=== PATIENT | female | born 1950 | race Hispanic/Latino ===

== ENCOUNTER 2021-03-06 16:55 | Inpatient (IN) | payer MEDICARE ==
--- NOTE | 2021-03-06 18:37 | Emergency Department Report ---
ED General Adult HPI - General Chief complaint: Abdominal Pain Stated complaint: SENT BY [facility] Time Seen by Provider: 03/06/21 18:32 Source: patient Mode of arrival: Ambulatory Limitations: No Limitations - History of Present Illness Initial comments: Patient was sent in from a alf for paracentesis. Patient was supposed to have had a paracentesis done 3 weeks ago as an outpatient. Apparently this was never completed. The family was trying to follow-up on it. The patient was ultimately directed here. Dr. Gambino, one of the physicians apparently was referenced by the alf report. According to him, he was going to get an kit and do it as an outpatient at the alf. We are not certain who actually directed the patient to the emergency department. Upon arrival, patient states that she does not feel well. She states that her stomach "aches." She has no sharp or stabbing pain. There is no fevers or chills. She states that the pain has been present for weeks now. She understood that she was coming here to get fluid drained off. She has never had fluid drained off before. She denies having an ultrasound that showed fluid in her abdomen. - Related Data Previous Rx's Medication Instructions Recorded Last Taken Type Folic Acid [Folvite] 1 mg PO QDAY #30 tablet 02/16/21 Unknown Rx Multivitamin Tab [Multiple Vitamin 1 each PO QDAY #30 tablet 02/16/21 Unknown Rx TAB (Theragran)] Thiamine [Vitamin B-1] 100 mg PO QDAY #30 tablet 02/16/21 Unknown Rx dilTIAZem CD [Cardizem CD] 180 mg PO QDAY #30 capsule 02/16/21 Unknown Rx Allergies Allergy/AdvReac Type Severity Reaction Status Date / Time Penicillins Allergy Hives Verified 02/16/21 13:34 ED Review of Systems ROS: Stated complaint: SENT BY [facility] Other details as noted in HPI Comment: All other systems reviewed and negative Constitutional: denies: fever Eyes: denies: eye pain ENT: denies: throat pain Respiratory: denies: cough Cardiovascular: denies: chest pain Endocrine: denies: unexplained weight loss Gastrointestinal: as per HPI Genitourinary: denies: dysuria Musculoskeletal: denies: back pain Skin: denies: rash Neurological: denies: headache Hematological/Lymphatic: denies: easy bruising ED Past Medical Hx - Past Medical History Previous Medical History?: Yes Hx Hypertension: Yes Hx Asthma: Yes Additional medical history: Alcoholic liver disease - Surgical History Past Surgical History?: Yes Hx Coronary Stent: Yes - Family History Family history: no significant - Social History Smoking Status: Smoker, Current Status Unknown - Medications Home Medications: Home Medications Medication Instructions Recorded Confirmed Last Taken Type Folic Acid [Folvite] 1 mg PO QDAY #30 tablet 02/16/21 Unknown Rx Multivitamin Tab [Multiple Vitamin 1 each PO QDAY #30 tablet 02/16/21 Unknown Rx TAB (Theragran)] Thiamine [Vitamin B-1] 100 mg PO QDAY #30 tablet 02/16/21 Unknown Rx dilTIAZem CD [Cardizem CD] 180 mg PO QDAY #30 capsule 02/16/21 Unknown Rx ED Physical Exam - General Limitations: No Limitations, Other (Pulse ox noted and normal) General appearance: alert, in no apparent distress - Head Head exam: Present: atraumatic, normocephalic - Eye Eye exam: Present: normal appearance, EOMI, scleral icterus - ENT ENT exam: Present: normal orophraynx, normal external ear exam - Neck Neck exam: Present: normal inspection. Absent: meningismus - Respiratory Respiratory exam: Present: normal lung sounds bilaterally. Absent: respiratory distress - Cardiovascular Cardiovascular Exam: Present: regular rate, normal rhythm - GI/Abdominal GI/Abdominal exam: Present: soft, tenderness (Mild and diffuse). Absent: distended, guarding, rebound, pulsatile mass - Extremities Exam Extremities exam: Present: normal capillary refill - Back Exam Back exam: Absent: CVA tenderness (R), CVA tenderness (L) - Neurological Exam Neurological exam: Present: alert, oriented X3, CN II-XII intact. Absent: motor sensory deficit - Psychiatric Psychiatric exam: Present: normal affect, normal mood - Skin Skin exam: Present: warm, dry ED Course Vital Signs 03/06/21 16:59 Temperature 98 F Pulse Rate 83 Respiratory 16 Rate Blood Pressure 116/82 [Left] O2 Sat by Pulse 96 Oximetry - Reevaluation(s) Reevaluation #1: 03/06/21 19:01 Case was discussed with Dr. Gambino, the physician that apparently was referenced by the alf. He agrees with observation status as well as planned paracentesis tomorrow. Screening labs for coagulopathy have been ordered. Reevaluation #2: 03/06/21 21:01 Patient was admitted ED Medical Decision Making - Lab Data Result diagrams: 03/06/21 19:09 03/06/21 19:09 - Medical Decision Making Patient presents with reports of abdominal pain and need for paracentesis. Labs have been reviewed. Dr. Gambino is going to be here tomorrow and will complete paracentesis. He had requested that we place the patient in observation status. Hospitalist was notified and the patient was admitted overnight. Critical Care Time: No Critical care attestation.: If time is entered above; I have spent that time in minutes in the direct care of this critically ill patient, excluding procedure time. ED Disposition Clinical Impression: Generalized abdominal pain, Alcoholic liver disease, Ascites Disposition: ADMITTED INPATIENT Is pt being admited?: Yes Condition: Stable Instructions: Abdominal Pain (ED)
[2021-03-06 20:15] LABS: Hematocrit 42.8 % (30.3-42.9); Hemoglobin 14.1 gm/dl (10.1-14.3); Mean Corpuscular HGB Conc 33 % (30-34); Mean Corpuscular Volume 108 fl (79-97); Platelet Count 203 K/mm3 (140-440); Red Blood Count 3.97 M/mm3 (3.65-5.03); Red Cell Distribution Width 15.7 % (13.2-15.2)
[2021-03-06 20:28] LABS: INR 1.48 (0.87-1.13)
[2021-03-06 20:33] LABS: Albumin 2.6 g/dL (3.9-5); Calcium 9.3 mg/dL (8.4-10.2)
[2021-03-06] MEDS ORDERED: ALBUTEROL 2.5 MG/3 ML NEBU IH PRN (21:58)
[2021-03-06] MEDS ORDERED: MORPHINE 2 MG/1 ML INJ IV PRN (21:58)
[2021-03-06] MEDS ORDERED: HYDROmorphone 1 MG/1 ML INJ IV PRN (21:58)
[2021-03-06] MEDS ORDERED: ONDANSETRON 4 MG/2 ML INJ IV PRN (21:58)
[2021-03-06] MEDS ORDERED: ACETAMINOPHEN 325 MG TAB PO PRN (21:58)
--- NOTE | 2021-03-06 22:05 | History and Physical Report ---
History of Present Illness Date of examination: 03/06/21 Date of admission: 03/06/21 Chief complaint: Abdominal pain Ascites History of present illness: 70 years old female with history of alcoholic liver disease was brought to the emergency room because of abdominal pain and ascites and patient needs paracentesis. Patient was supposed to have had a paracentesis done 3 weeks ago as an outpatient. Apparently this was never completed. The family was trying to follow-up on it. The patient was ultimately directed here. Dr. Gambino, one of the physicians apparently was referenced by the [facility] report. According to him, he was going to get an kit and do it as an outpatient at the [facility]. We are not certain who actually directed the patient to the emergency department. Upon arrival, patient states that she does not feel well. She states that her stomach "aches." She has no sharp or stabbing pain. There is no fevers or chills. She states that the pain has been present for weeks now. She understood that she was coming here to get fluid drained off. She has never had fluid drained off before. She denies having an ultrasound that showed fluid in her abdomen. Were going to admit the patient to the hospital. Dr. Immanuel Lainez will do the paracentesis in the morning Past History Past Medical History: hypertension (Asthma), other (Alcoholic liver disease) Past Surgical History: Other (Coronary stent) Medications and Allergies Allergies Allergy/AdvReac Type Severity Reaction Status Date / Time Penicillins Allergy Hives Verified 02/16/21 13:34 Home Medications Medication Instructions Recorded Confirmed Last Taken Type Folic Acid [Folvite] 1 mg PO QDAY #30 tablet 02/16/21 Unknown Rx Multivitamin Tab [Multiple Vitamin 1 each PO QDAY #30 tablet 02/16/21 Unknown Rx TAB (Theragran)] Thiamine [Vitamin B-1] 100 mg PO QDAY #30 tablet 02/16/21 Unknown Rx dilTIAZem CD [Cardizem CD] 180 mg PO QDAY #30 capsule 02/16/21 Unknown Rx Review of Systems All systems: negative Gastrointestinal: abdominal pain, other (Abdominal distention) Exam - Constitutional Vitals: Temp Pulse Resp BP Pulse Ox 98 F 83 16 116/82 96 03/06/21 16:59 03/06/21 16:59 03/06/21 16:59 03/06/21 16:59 03/06/21 16:59 General appearance: Present: no acute distress, well-nourished - EENT Eyes: Present: PERRL ENT: hearing intact, clear oral mucosa - Neck Neck: Present: supple, normal ROM - Respiratory Respiratory effort: normal Respiratory: bilateral: diminished - Cardiovascular Heart Sounds: Present: S1 & S2. Absent: rub, click - Extremities Extremities: pulses symmetrical, No edema Peripheral Pulses: within normal limits - Abdominal General gastrointestinal: Present: soft, non-tender, distended, normal bowel sounds Female genitourinary: Present: normal - Integumentary Integumentary: Present: clear, warm, dry - Musculoskeletal Musculoskeletal: gait normal, strength equal bilaterally - Psychiatric Psychiatric: appropriate mood/affect, intact judgment & insight - Neurologic Neurologic: CNII-XII intact, moves all extremities Results - Labs CBC & Chem 7: 03/06/21 19:09 03/06/21 19:09 Labs: Laboratory Last Values WBC 4.5 K/mm3 (4.5-11.0) 03/06/21 19:09 RBC 3.97 M/mm3 (3.65-5.03) 03/06/21 19:09 Hgb 14.1 gm/dl (10.1-14.3) 03/06/21 19:09 Hct 42.8 % (30.3-42.9) 03/06/21 19:09 MCV 108 fl (79-97) H 03/06/21 19:09 MCH 36 pg (28-32) H 03/06/21 19:09 MCHC 33 % (30-34) 03/06/21 19:09 RDW 15.7 % (13.2-15.2) H 03/06/21 19:09 Plt Count 203 K/mm3 (140-440) 03/06/21 19:09 PT 19.4 Sec. (12.2-14.9) H 03/06/21 19:09 INR 1.48 (0.87-1.13) H 03/06/21 19:09 Sodium 135 mmol/L (137-145) L 03/06/21 19:09 Potassium 3.5 mmol/L (3.6-5.0) L 03/06/21 19:09 Chloride 100.2 mmol/L (98-107) 03/06/21 19:09 Carbon Dioxide 19 mmol/L (22-30) L 03/06/21 19:09 Anion Gap 19 mmol/L 03/06/21 19:09 BUN 20 mg/dL (7-17) H 03/06/21 19:09 Creatinine 1.0 mg/dL (0.6-1.2) 03/06/21 19:09 Estimated GFR 55 ml/min 03/06/21 19:09 BUN/Creatinine Ratio 20 % 03/06/21 19:09 Glucose 100 mg/dL (65-100) 03/06/21 19:09 Calcium 9.3 mg/dL (8.4-10.2) 03/06/21 19:09 Total Bilirubin 2.80 mg/dL (0.1-1.2) H 03/06/21 19:09 AST 63 units/L (5-40) H 03/06/21 19:09 ALT 26 units/L (7-56) 03/06/21 19:09 Alkaline Phosphatase 103 units/L (35-129) 03/06/21 19:09 Total Protein 7.5 g/dL (6.3-8.2) 03/06/21 19:09 Albumin 2.6 g/dL (3.9-5) L 03/06/21 19:09 Albumin/Globulin Ratio 0.5 % 03/06/21 19:09 Lipase 19 units/L (13-60) 03/06/21 19:09 Assessment and Plan VTE prophylaxis?: Mechanical Plan of care discussed with patient/family: Yes - Patient Problems (1) Ascites Current Visit: Yes Status: Acute Plan to address problem: Admit the patient to the medical floor. Cardiac diet n.p.o. after midnight. Oxygen via nasal respirator per minute. Pepcid 20 mg p.o. twice daily. We consulted Dr. Gambino to see the patient for paracentesis. Recheck CBC CMP in the morning (2) Alcoholic liver disease Current Visit: Yes Status: Acute Plan to address problem: Patient counseled regarding quit drinking. Pepcid 20 mg p.o. twice daily. Thiamine 100 mg p.o. daily. Folic acid 1 mg p.o. daily (3) Generalized abdominal pain Current Visit: Yes Status: Acute Plan to address problem: N.p.o. after midnight. Pepcid 20 mg p.o. twice daily. Morphine 2 mg IV every 4 hours as needed. If needed will consult GI in the morning (4) Alcohol dependence Current Visit: No Status: Acute Qualifiers: Complication of substance-induced condition: uncomplicated Plan to address problem: Patient counseled regarding quit drinking. Patient is put on thiamine 100 mg p.o. daily and folic acid 1 mg p.o. daily (5) Hypertension Current Visit: Yes Status: Acute Plan to address problem: Hydralazine 10 mg IV every 6 hours as needed. Cardizem 180 mg p.o. daily (6) Asthma Current Visit: Yes Status: Acute Plan to address problem: Oxygen by nasal cannula 3 topiramate. DuoNeb by nebulizer every 4 hours. Albuterol via nebulizer every 4 hours as needed (7) DVT prophylaxis Current Visit: No Status: Acute Plan to address problem: SCD for DVT prophylaxis. Pepcid 20 mg p.o. twice daily for GI prophylaxis. Patient is a full code
[2021-03-06] MEDS: FAMOTIDINE 20 MG TAB PO SCH (23:30)
[2021-03-07] MEDS: IPRATROPIUM/ALBUTEROL SULFATE 3 ML AMPUL.NEB IH SCH ×4 (02:21→22:13)
[2021-03-07 06:13] LABS: Hematocrit 32.6 % (30.3-42.9); Hemoglobin 10.5 gm/dl (10.1-14.3); Mean Corpuscular HGB Conc 32 % (30-34); Mean Corpuscular Volume 108 fl (79-97); Platelet Count 177 K/mm3 (140-440); Red Blood Count 3.01 M/mm3 (3.65-5.03); Red Cell Distribution Width 15.5 % (13.2-15.2)
[2021-03-07 06:28] LABS: Albumin 1.8 g/dL (3.9-5); Calcium 8.1 mg/dL (8.4-10.2)
[2021-03-07 08:09] LABS: Eosinophils # (Auto) 0.1 K/mm3 (0.0-0.4); Monocytes # (Auto) 0.7 K/mm3 (0.0-0.8)
[2021-03-07 09:47] LABS: Platelet Estimate Consistent w Auto; RBC Morphology Normal; Total Cells Counted 100
[2021-03-07] MEDS: dilTIAZem CD 180 MG CAP PO SCH (10:00)
[2021-03-07] MEDS: FAMOTIDINE 20 MG TAB PO SCH (10:00)
--- NOTE | 2021-03-07 10:12 | Gastroenterology Consultation ---
History of Present Illness - Reason for Consult Consult date: 03/07/21 Abdominal Pain, Anemia Requesting physician: RENITA POWELL - History of Present Illness The patient is a 70 yo female admitted with abdominal pain and likely ascites, from her Rehab facility (was here 3 weeks ago with AF/RVR). 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 She does have hypoalbuminemia, elevated LFTs, and borderline platelets. In addition, she is morbidly obese. She says her abdomen has been swollen for several weeks, and per the notes, she was supposed to have an outpatient paracentesis. She says her last EtOH was "last month" but can not provide a date (awake, alert, and no signs of asterixis, but poor historian). She has no fevers or focal abdominal pain. She denies blood in her stools. Other than MVI and diltiazem, no other meds, and denies prior paracentesis. Past History Past Medical History: CAD (Hx of PCI), COPD, hypertension (Asthma), liver d isease, other (Morbid obesity) Past Surgical History: Other (Coronary stent) Social history: smoking, alcohol abuse Family history: no significant family history Medications and Allergies Allergies Allergy/AdvReac Type Severity Reaction Status Date / Time Penicillins Allergy Hives Verified 02/16/21 13:34 Home Medications Medication Instructions Recorded Confirmed Last Taken Type Folic Acid [Folvite] 1 mg PO QDAY #30 tablet 02/16/21 Unknown Rx Multivitamin Tab [Multiple Vitamin 1 each PO QDAY #30 tablet 02/16/21 Unknown Rx TAB (Theragran)] Thiamine [Vitamin B-1] 100 mg PO QDAY #30 tablet 02/16/21 Unknown Rx dilTIAZem CD [Cardizem CD] 180 mg PO QDAY #30 capsule 02/16/21 Unknown Rx Active Meds: Active Medications Acetaminophen (Acetaminophen 325 Mg Tab) 650 mg PO Q4H PRN PRN Reason: Pain MILD(1-3)/Fever >100.5/SALINAS Albumin Human (Albumin Human 25% (25 Gm/100 Ml) Inj) 25 gm IV Q8HR ARUN Stop: 03/08/21 06:01 Albuterol (Albuterol 2.5 Mg/3 Ml Nebu) 2.5 mg IH Q4HRT PRN PRN Reason: Shortness Of Breath Albuterol/Ipratropium (Ipratropium/Albuterol Sulfate 3 Ml Ampul.Neb) 1 ampul IH Q6HRT [facility] Last Admin: 03/07/21 02:21 Dose: 1 ampul Diltiazem HCl (Diltiazem Cd 180 Mg Cap) 180 mg PO QDAY ARUN Folic Acid (Folic Acid 1 Mg Tab) 1 mg PO QDAY [facility] Morphine Sulfate (Morphine 2 Mg/1 Ml Inj) 1 mg IV Q4H PRN PRN Reason: Pain, Moderate (4-6) Multivitamins (Multivitamins ,Therapeutic Tab) 1 each PO QDAY [facility] Ondansetron HCl (Ondansetron 4 Mg/2 Ml Inj) 4 mg IV Q8H PRN PRN Reason: Nausea And Vomiting Pantoprazole Sodium (Pantoprazole 40 Mg Tab) 40 mg PO QDAC [facility] Sodium Chloride (Sodium Chloride 0.9% 10 Ml Flush Syringe) 10 ml IV BID [facility] Last Admin: 03/07/21 02:22 Dose: 10 ml Sodium Chloride (Sodium Chloride 0.9% 10 Ml Flush Syringe) 10 ml IV PRN PRN PRN Reason: LINE FLUSH Thiamine HCl (Thiamine 100 Mg Tab) 100 mg PO QDAY [facility] Review of Systems - Review of Systems All systems: negative (as noted in the HPI) Exam - Constitutional Vital Signs: Temp Pulse Resp BP Pulse Ox 98 F 82 17 95/62 97 03/06/21 16:59 03/07/21 06:31 03/07/21 06:31 03/07/21 06:31 03/07/21 06:31 General appearance: no acute distress - EENT Eyes: PERRL, EOM intact ENT: hearing intact, clear oral mucosa, poor dentition - Neck Neck: supple, normal ROM - Respiratory Respiratory effort: normal Respiratory: bilateral: CTA - Cardiovascular Rhythm: regular Heart Sounds: Present: S1 & S2 - Gastrointestinal General gastrointestinal: Present: soft, non-tender, distended (Obesity with probable ascites as well) - Integumentary Integumentary: Present: clear, warm, dry - Neurologic Neurological: alert and oriented x3 - Psychiatric Psychiatric: appropriate mood/affect - Labs CBC & Chem 7: 03/07/21 05:23 03/07/21 05:23 Lab Results: Laboratory Results - last 24 hr 03/06/21 03/06/21 03/06/21 19:09 19:09 19:09 WBC 4.5 RBC 3.97 Hgb 14.1 Hct 42.8 MCV 108 H MCH 36 H MCHC 33 RDW 15.7 H Plt Count 203 [place] % (Auto) Eos % (Auto) [place] # (Auto) Eos # (Auto) Baso # (Auto) Add Manual Diff Total Counted Seg Neutrophils % Seg Neuts % (Manual) Band Neutrophils % Lymphocytes % (Manual) Reactive Lymphs % (Man) Monocytes % (Manual) Eosinophils % (Manual) Basophils % (Manual) Metamyelocytes % Myelocytes % Promyelocytes % Blast Cells % Nucleated RBC % Seg Neutrophils # Seg Neutrophils # Man Band Neutrophils # Lymphocytes # (Manual) Abs React Lymphs (Man) Monocytes # (Manual) Eosinophils # (Manual) Basophils # (Manual) Metamyelocytes # Myelocytes # Promyelocytes # Blast Cells # WBC Morphology Hypersegmented Neuts Hyposegmented Neuts Hypogranular Neuts Smudge Cells Toxic Granulation Toxic Vacuolation Dohle Bodies Pelger-Huet Anomaly Luis Rods Platelet Estimate Clumped Platelets Plt Clumps, EDTA Large Platelets Giant Platelets Platelet Satelliting Plt Morphology Comment RBC Morphology Dimorphic RBCs Polychromasia Hypochromasia Poikilocytosis Anisocytosis Microcytosis Macrocytosis Spherocytes Pappenheimer Bodies Sickle Cells Target Cells Tear Drop Cells Ovalocytes Helmet Cells [place] Bodies Simpson Rings [place] Cells Bite Cells Crenated Cell Elliptocytes Acanthocytes (Spur) Rouleaux Hemoglobin C Crystals Schistocytes Malaria parasites Paulo Bodies Hem Pathologist Commnt PT 19.4 H INR 1.48 H Sodium 135 L Potassium 3.5 L Chloride 100.2 Carbon Dioxide 19 L Anion Gap 19 BUN 20 H Creatinine 1.0 Estimated GFR 55 BUN/Creatinine Ratio 20 Glucose 100 Calcium 9.3 Total Bilirubin 2.80 H AST 63 H ALT 26 Alkaline Phosphatase 103 Total Protein 7.5 Albumin 2.6 L Albumin/Globulin Ratio 0.5 Lipase 19 03/07/21 03/07/21 05:23 05:23 WBC 3.9 L RBC 3.01 L Hgb 10.5 D Hct 32.6 D MCV 108 H MCH 35 H MCHC 32 RDW 15.5 H Plt Count 177 [place] % (Auto) Site Medical Director Eos % (Auto) 2.0 [place] # (Auto) 0.7 Eos # (Auto) 0.1 Baso # (Auto) 0.0 Add Manual Diff Complete Total Counted 100 Seg Neutrophils % 46.8 Seg Neuts % (Manual) 65.0 Band Neutrophils % 0 Lymphocytes % (Manual) 17.0 Reactive Lymphs % (Man) 0 Monocytes % (Manual) 16.0 H Eosinophils % (Manual) 1.0 Basophils % (Manual) 1.0 Metamyelocytes % 0 Myelocytes % 0 Promyelocytes % 0 Blast Cells % 0 Nucleated RBC % Not Reportable Seg Neutrophils # 1.8 Seg Neutrophils # Man 2.5 Band Neutrophils # 0.0 Lymphocytes # (Manual) 0.7 L Abs React Lymphs (Man) 0.0 Monocytes # (Manual) 0.6 Eosinophils # (Manual) 0.0 Basophils # (Manual) 0.0 Metamyelocytes # 0.0 Myelocytes # 0.0 Promyelocytes # 0.0 Blast Cells # 0.0 WBC Morphology Not Reportable Hypersegmented Neuts Not Reportable Hyposegmented Neuts Not Reportable Hypogranular Neuts Not Reportable Smudge Cells Not Reportable Toxic Granulation Not Reportable Toxic Vacuolation Not Reportable Dohle Bodies Not Reportable Pelger-Huet Anomaly Not Reportable Luis Rods Not Reportable Platelet Estimate Consistent w auto Clumped Platelets Not Reportable Plt Clumps, EDTA Not Reportable Large Platelets Not Reportable Giant Platelets Not Reportable Platelet Satelliting Not Reportable Plt Morphology Comment Not Reportable RBC Morphology Normal Dimorphic RBCs Not Reportable Polychromasia Not Reportable Hypochromasia Not Reportable Poikilocytosis Not Reportable Anisocytosis Not Reportable Microcytosis Not Reportable Macrocytosis Not Reportable Spherocytes Not Reportable Pappenheimer Bodies Not Reportable Sickle Cells Not Reportable Target Cells Not Reportable Tear Drop Cells Not Reportable Ovalocytes Not Reportable Helmet Cells Not Reportable [place] Bodies Not Reportable Simpson Rings Not Reportable [place] Cells Not Reportable Bite Cells Not Reportable Crenated Cell Not Reportable Elliptocytes Not Reportable Acanthocytes (Spur) Not Reportable Rouleaux Not Reportable Hemoglobin C Crystals Not Reportable Schistocytes Not Reportable Malaria parasites Not Reportable Paulo Bodies Not Reportable Hem Pathologist Commnt No PT INR Sodium 139 Potassium 3.8 Chloride 104.2 Carbon Dioxide 23 Anion Gap 16 BUN 22 H Creatinine 1.0 Estimated GFR 55 BUN/Creatinine Ratio 22 Glucose 84 Calcium 8.1 L Total Bilirubin 1.90 H AST 45 H ALT 17 Alkaline Phosphatase 73 Total Protein 5.2 L D Albumin 1.8 L Albumin/Globulin Ratio 0.5 Lipase Assessment and Plan - Patient Problems (1) Alcoholic liver disease Current Visit: Yes Status: Acute Plan to address problem: - Continue MVI therapy; no need for CIWA since resident of Rehab and over 2 weeks since last EtOH. - Will check routine liver serologies, and abdominal US. - If significant ascites on US, recommend paracentesis with fluid for cell count as well as cytology given age/gender. - Hold diuretics today pending US, but will add albumin given level 1.8, and likely start tomorrow. - Will add protonix; hold beta blockers for now given use of diltiazem already. - Recommend minimize narcotics and no benzos. (2) Ascites Current Visit: Yes Status: Acute (3) Macrocytic anemia Current Visit: Yes Status: Acute Plan to address problem: - Will check B12 level but likely due to EtOH liver disease. - Patient has a hx of rectal bleeding, and no recent endoscopy (here or [place]); eventual endoscopy when clinically improved.
[2021-03-07] MEDS ORDERED: MORPHINE 2 MG/1 ML INJ IV PRN (11:00)
[2021-03-07] MEDS: FOLIC ACID 1 MG TAB PO SCH (11:57)
[2021-03-07] MEDS: MULTIVITAMINS ,THERAPEUTIC TAB PO SCH (11:57)
[2021-03-07] MEDS: THIAMINE 100 MG TAB PO SCH (11:57)
[2021-03-07] MEDS: PANTOPRAZOLE 40 MG TAB PO SCH (11:57)
--- NOTE | 2021-03-07 12:09 | Ultrasound Report ---
ULTRASOUND ABDOMEN, COMPLETE INDICATION / CLINICAL INFORMATION: Assess for possible cirrhosis. COMPARISON: None available. FINDINGS: Study is limited due to body habitus. PANCREAS: Visualized portions of the pancreas are within normal limits. ABDOMINAL AORTA: No significant abnormality. IVC: No significant abnormality. LIVER: Liver is normal in size, measuring 14.1 cm. There is diffusely increased hepatic echogenicity. No focal lesion. PORTAL VEIN: Normal hepatopedal blood flow in the main portal vein. GALLBLADDER: The gallbladder is not seen and may be surgically absent. BILE DUCTS: Common bile duct is not visualized. KIDNEYS: Right: No significant abnormality. Left: Left kidney is not visualized. SPLEEN: Not visualized FREE FLUID: Moderate volume ascites. ADDITIONAL FINDINGS: None. IMPRESSION: 1. Limited study, as above. Diffusely increased hepatic echogenicity is nonspecific but may reflect chronic hepatic dysfunction or fatty infiltration. 2. Moderate volume ascites. Signer Name: Junior Cannon MD Signed: 03/07/2021 12:04 PM Workstation Name: [id number]
--- NOTE | 2021-03-07 12:27 | Progress Note ---
Assessment and Plan Assessment and plan: #Moderate abdominal ascites #Generalized abdominal pain Patient endorses history of significant alcohol dependence that has since ceased. Increase likelihood of decompensated alcoholic cirrhosis. Pending abdominal ultrasound to assess for cirrhosis and ascites. Gastroenterology consulted; appreciate recs Pending paracentesis with fluid studies. Starting albumin resuscitation in the setting of albumin being 1.8. Continue multivitamin, thiamine, and folic acid daily. Discontinuing any beta-blockers in the setting of patient already receiving diltiazem. Continue to monitor #History of alcohol dependence CIWA protocol discontinued as patient endorses last alcoholic beverage >2 weeks ago #Hypertension - home medications: Diltiazem 180 mg daily - current medications: Diltiazem 180 mg daily - SBP goal <160 and DBP goal <90 while inpatient - continue to monitor #Asthma Continue albuterol nebs every 4 hours as needed #Macrocytic anemia Likely in the setting of prolonged alcohol consumption. Continue to monitor #Advanced care planning -Disease education conducted, care plan discussed, diagnoses discussed, prognosis discussed, and patient acknowledges understanding with care plan -Time: +30 min Disposition Plan: Continue medical management Total Time Spent with Patient (Minutes): 45 minutes History Interval history: No acute events over night. The patient denies fevers, chills, nausea, vomiting, abdominal pain, chest pain/pressure, shortness of breath, urinary symptoms, weakness, or confusion. Hospitalist Physical - Constitutional Vitals: Temp Pulse Resp BP Pulse Ox 98 F 82 17 95/62 97 03/06/21 16:59 03/07/21 06:31 03/07/21 06:31 03/07/21 06:31 03/07/21 06:31 General appearance: Present: no acute distress, well-nourished - EENT Eyes: Present: PERRL, EOM intact ENT: hearing intact, clear oral mucosa - Neck Neck: Present: supple, normal ROM - Respiratory Respiratory effort: normal Respiratory: bilateral: CTA - Cardiovascular Rhythm: regular Heart Sounds: Present: S1 & S2 - Extremities Extremities: no ischemia, pulses intact, pulses symmetrical, No edema, normal temperature, normal color Peripheral Pulses: within normal limits - Abdominal General gastrointestinal: soft, non-tender, non-distended, distended (Abdominal ascites) - Integumentary Integumentary: Present: clear, warm, dry - Psychiatric Psychiatric: appropriate mood/affect, intact judgment & insight, cooperative - Neurologic Neurologic: CNII-XII intact, moves all extremities - Allied Health Allied health notes reviewed: nursing Results - Labs CBC & Chem 7: 03/07/21 05:23 03/07/21 05:23 Labs: Laboratory Last Values WBC 3.9 K/mm3 (4.5-11.0) L 03/07/21 05:23 RBC 3.01 M/mm3 (3.65-5.03) L 03/07/21 05:23 Hgb 10.5 gm/dl (10.1-14.3) D 03/07/21 05:23 Hct 32.6 % (30.3-42.9) D 03/07/21 05:23 MCV 108 fl (79-97) H 03/07/21 05:23 MCH 35 pg (28-32) H 03/07/21 05:23 MCHC 32 % (30-34) 03/07/21 05:23 RDW 15.5 % (13.2-15.2) H 03/07/21 05:23 Plt Count 177 K/mm3 (140-440) 03/07/21 05:23 [place] % (Auto) [employer] 03/07/21 05:23 Eos % (Auto) 2.0 % (0.0-4.3) 03/07/21 05:23 [place] # (Auto) 0.7 K/mm3 (0.0-0.8) 03/07/21 05:23 Eos # (Auto) 0.1 K/mm3 (0.0-0.4) 03/07/21 05:23 Baso # (Auto) 0.0 K/mm3 (0.0-0.1) 03/07/21 05:23 Add Manual Diff Complete 03/07/21 05:23 Total Counted 100 03/07/21 05:23 Seg Neutrophils % 46.8 % (40.0-70.0) 03/07/21 05:23 Seg Neuts % (Manual) 65.0 % (40.0-70.0) 03/07/21 05:23 Band Neutrophils % 0 % 03/07/21 05:23 Lymphocytes % (Manual) 17.0 % (13.4-35.0) 03/07/21 05:23 Reactive Lymphs % (Man) 0 % 03/07/21 05:23 Monocytes % (Manual) 16.0 % (0.0-7.3) H 03/07/21 05:23 Eosinophils % (Manual) 1.0 % (0.0-4.3) 03/07/21 05:23 Basophils % (Manual) 1.0 % (0.0-1.8) 03/07/21 05:23 Metamyelocytes % 0 % 03/07/21 05:23 Myelocytes % 0 % 03/07/21 05:23 Promyelocytes % 0 % 03/07/21 05:23 Blast Cells % 0 % 03/07/21 05:23 Nucleated RBC % Not Reportable 03/07/21 05:23 Seg Neutrophils # 1.8 K/mm3 (1.8-7.7) 03/07/21 05:23 Seg Neutrophils # Man 2.5 K/mm3 (1.8-7.7) 03/07/21 05:23 Band Neutrophils # 0.0 K/mm3 03/07/21 05:23 Lymphocytes # (Manual) 0.7 K/mm3 (1.2-5.4) L 03/07/21 05:23 Abs React Lymphs (Man) 0.0 K/mm3 03/07/21 05:23 Monocytes # (Manual) 0.6 K/mm3 (0.0-0.8) 03/07/21 05:23 Eosinophils # (Manual) 0.0 K/mm3 (0.0-0.4) 03/07/21 05:23 Basophils # (Manual) 0.0 K/mm3 (0.0-0.1) 03/07/21 05:23 Metamyelocytes # 0.0 K/mm3 03/07/21 05:23 Myelocytes # 0.0 K/mm3 03/07/21 05:23 Promyelocytes # 0.0 K/mm3 03/07/21 05:23 Blast Cells # 0.0 K/mm3 03/07/21 05:23 WBC Morphology Not Reportable 03/07/21 05:23 Hypersegmented Neuts Not Reportable 03/07/21 05:23 Hyposegmented Neuts Not Reportable 03/07/21 05:23 Hypogranular Neuts Not Reportable 03/07/21 05:23 Smudge Cells Not Reportable 03/07/21 05:23 Toxic Granulation Not Reportable 03/07/21 05:23 Toxic Vacuolation Not Reportable 03/07/21 05:23 Dohle Bodies Not Reportable 03/07/21 05:23 Pelger-Huet Anomaly Not Reportable 03/07/21 05:23 Luis Rods Not Reportable 03/07/21 05:23 Platelet Estimate Consistent w auto 03/07/21 05:23 Clumped Platelets Not Reportable 03/07/21 05:23 Plt Clumps, EDTA Not Reportable 03/07/21 05:23 Large Platelets Not Reportable 03/07/21 05:23 Giant Platelets Not Reportable 03/07/21 05:23 Platelet Satelliting Not Reportable 03/07/21 05:23 Plt Morphology Comment Not Reportable 03/07/21 05:23 RBC Morphology Normal 03/07/21 05:23 Dimorphic RBCs Not Reportable 03/07/21 05:23 Polychromasia Not Reportable 03/07/21 05:23 Hypochromasia Not Reportable 03/07/21 05:23 Poikilocytosis Not Reportable 03/07/21 05:23 Anisocytosis Not Reportable 03/07/21 05:23 Microcytosis Not Reportable 03/07/21 05:23 Macrocytosis Not Reportable 03/07/21 05:23 Spherocytes Not Reportable 03/07/21 05:23 Pappenheimer Bodies Not Reportable 03/07/21 05:23 Sickle Cells Not Reportable 03/07/21 05:23 Target Cells Not Reportable 03/07/21 05:23 Tear Drop Cells Not Reportable 03/07/21 05:23 Ovalocytes Not Reportable 03/07/21 05:23 Helmet Cells Not Reportable 03/07/21 05:23 Ras[place] Bodies Not Reportable 03/07/21 05:23 [place] Rings Not Reportable 03/07/21 05:23 [place] Cells Not Reportable 03/07/21 05:23 Bite Cells Not Reportable 03/07/21 05:23 Crenated Cell Not Reportable 03/07/21 05:23 Elliptocytes Not Reportable 03/07/21 05:23 Acanthocytes (Spur) Not Reportable 03/07/21 05:23 Rouleaux Not Reportable 03/07/21 05:23 Hemoglobin C Crystals Not Reportable 03/07/21 05:23 Schistocytes Not Reportable 03/07/21 05:23 Malaria parasites Not Reportable 03/07/21 05:23 Paulo Bodies Not Reportable 03/07/21 05:23 Hem Pathologist Commnt No 03/07/21 05:23 PT 19.4 Sec. (12.2-14.9) H 03/06/21 19:09 INR 1.48 (0.87-1.13) H 03/06/21 19:09 Sodium 139 mmol/L (137-145) 03/07/21 05:23 Potassium 3.8 mmol/L (3.6-5.0) 03/07/21 05:23 Chloride 104.2 mmol/L (98-107) 03/07/21 05:23 Carbon Dioxide 23 mmol/L (22-30) 03/07/21 05:23 Anion Gap 16 mmol/L 03/07/21 05:23 BUN 22 mg/dL (7-17) H 03/07/21 05:23 Creatinine 1.0 mg/dL (0.6-1.2) 03/07/21 05:23 Estimated GFR 55 ml/min 03/07/21 05:23 BUN/Creatinine Ratio 22 % 03/07/21 05:23 Glucose 84 mg/dL (65-100) 03/07/21 05:23 Calcium 8.1 mg/dL (8.4-10.2) L 03/07/21 05:23 Total Bilirubin 1.90 mg/dL (0.1-1.2) H 03/07/21 05:23 AST 45 units/L (5-40) H 03/07/21 05:23 ALT 17 units/L (7-56) 03/07/21 05:23 Alkaline Phosphatase 73 units/L (35-129) 03/07/21 05:23 Total Protein 5.2 g/dL (6.3-8.2) L D 03/07/21 05:23 Albumin 1.8 g/dL (3.9-5) L 03/07/21 05:23 Albumin/Globulin Ratio 0.5 % 03/07/21 05:23 Lipase 19 units/L (13-60) 03/06/21 19:09 Active Medications - Current Medications Current Medications: Generic Name Dose Route Start Last Admin Trade Name Freq PRN Reason Stop Dose Admin Acetaminophen 650 mg 03/06/21 21:58 Acetaminophen 325 Mg Tab PO Q4H PRN Pain MILD(1-3)/Fever >100.5/SALINAS Albumin Human 25 gm 03/07/21 14:00 Albumin Human 25% (25 Gm/100 Ml) Inj IV 03/08/21 06:01 Q8HR ARUN Albuterol 2.5 mg 03/06/21 21:58 03/07/21 11:57 Albuterol 2.5 Mg/3 Ml Nebu IH 2.5 mg Q4HRT PRN Administration Shortness Of Breath Albuterol/Ipratropium 1 ampul 03/07/21 02:00 03/07/21 11:56 Ipratropium/Albuterol Sulfate 3 Ml Ampul.Neb IH 1 ampul Q6HRT ARUN Administration Diltiazem HCl 180 mg 03/07/21 10:00 Diltiazem Cd 180 Mg Cap PO QDAY ARUN Folic Acid 1 mg 03/07/21 10:00 03/07/21 11:57 Folic Acid 1 Mg Tab PO 1 mg QDAY ARUN Administration Morphine Sulfate 1 mg 03/07/21 11:00 Morphine 2 Mg/1 Ml Inj IV Q4H PRN Pain, Moderate (4-6) Multivitamins 1 each 03/07/21 10:00 03/07/21 11:57 Multivitamins ,Therapeutic Tab PO 1 each QDAY ARUN Administration Ondansetron HCl 4 mg 03/06/21 21:58 Ondansetron 4 Mg/2 Ml Inj IV Q8H PRN Nausea And Vomiting Pantoprazole Sodium 40 mg 03/07/21 11:00 03/07/21 11:57 Pantoprazole 40 Mg Tab PO 40 mg QDAC ARUN Administration Sodium Chloride 10 ml 03/06/21 22:00 03/07/21 11:57 Sodium Chloride 0.9% 10 Ml Flush Syringe IV 10 ml BID ARUN Administration Sodium Chloride 10 ml 03/06/21 21:58 Sodium Chloride 0.9% 10 Ml Flush Syringe IV PRN PRN LINE FLUSH Thiamine HCl 100 mg 03/07/21 10:00 03/07/21 11:57 Thiamine 100 Mg Tab PO 100 mg QDAY ARUN Administration
[2021-03-07] MEDS: ALBUMIN HUMAN 25% (25 GM/100 ML) INJ IV SCH ×2 (14:00→22:09)
[2021-03-08] MEDS: IPRATROPIUM/ALBUTEROL SULFATE 3 ML AMPUL.NEB IH SCH ×4 (02:26→20:37)
[2021-03-08 04:38] LABS: Basophils % (Auto) 0.8 % (0.0-1.8); Eosinophils # (Auto) 0.1 K/mm3 (0.0-0.4); Eosinophils % (Auto) 2.2 % (0.0-4.3); Hematocrit 33.9 % (30.3-42.9); Hemoglobin 11.1 gm/dl (10.1-14.3); Lymphocytes # (Auto) 1.4 K/mm3 (1.2-5.4); Lymphocytes % (Auto) 31.2 % (13.4-35.0); Mean Corpuscular HGB Conc 33 % (30-34); Mean Corpuscular Volume 109 fl (79-97); Monocytes # (Auto) 0.5 K/mm3 (0.0-0.8); Monocytes % (Auto) 11.8 % (0.0-7.3); Platelet Count 142 K/mm3 (140-440)
[2021-03-08 04:58] LABS: Albumin 2.4 g/dL (3.9-5); Calcium 8.7 mg/dL (8.4-10.2)
[2021-03-08] MEDS: ALBUMIN HUMAN 25% (25 GM/100 ML) INJ IV SCH (06:47)
[2021-03-08] MEDS: PANTOPRAZOLE 40 MG TAB PO SCH (08:47)
--- NOTE | 2021-03-08 10:41 | Progress Note ---
Assessment and Plan Assessment and plan: #Moderate abdominal ascites #Generalized abdominal pain Patient endorses history of significant alcohol dependence that has since ceased. Increase likelihood of decompensated alcoholic cirrhosis. Pending abdominal ultrasound to assess for cirrhosis and ascites. Gastroenterology consulted; appreciate recs Ordered ultrasound guided paracentesis for diagnostic and therapeutic relief. Ordered ascitic labs following paracentesis. Starting albumin resuscitation in the setting of albumin being 1.8. Continue multivitamin, thiamine, and folic acid daily. Discontinuing any beta-blockers in the setting of patient already receiving diltiazem. Continue to monitor #COVID-19 infection Holding on starting steroids and remdesivir as the patient is currently on room air. Continue to monitor. Continue contact and droplet precautions. #History of alcohol dependence CIWA protocol discontinued as patient endorses last alcoholic beverage >2 weeks ago #Hypertension - home medications: Diltiazem 180 mg daily - current medications: Diltiazem 180 mg daily - SBP goal <160 and DBP goal <90 while inpatient - continue to monitor #Asthma Continue albuterol nebs every 4 hours as needed #Macrocytic anemia Likely in the setting of prolonged alcohol consumption. Continue to monitor #Advanced care planning -Disease education conducted, care plan discussed, diagnoses discussed, prognosis discussed, and patient acknowledges understanding with care plan -Time: +30 min Disposition Plan: Continue medical management Total Time Spent with Patient (Minutes): 45 minutes History Interval history: No acute events overnight. Hospitalist Physical - Constitutional Vitals: Temp Pulse Resp BP Pulse Ox 98 F 80 17 91/57 99 03/06/21 16:59 03/08/21 01:28 03/08/21 01:28 03/08/21 01:15 03/08/21 01:28 General appearance: Present: no acute distress, well-nourished - EENT Eyes: Present: PERRL, EOM intact ENT: hearing intact, clear oral mucosa - Neck Neck: Present: supple, normal ROM - Respiratory Respiratory effort: normal Respiratory: bilateral: diminished - Cardiovascular Rhythm: regular Heart Sounds: Present: S1 & S2 - Extremities Extremities: no ischemia, pulses intact, pulses symmetrical, No edema, normal temperature, normal color Peripheral Pulses: within normal limits - Abdominal General gastrointestinal: soft, non-tender, distended (Moderate ascites), normal bowel sounds - Integumentary Integumentary: Present: clear, warm, dry - Psychiatric Psychiatric: appropriate mood/affect, memory intact, cooperative - Neurologic Neurologic: CNII-XII intact, moves all extremities - Allied Health Allied health notes reviewed: nursing Results - Labs CBC & Chem 7: 03/08/21 04:09 03/08/21 04:09 Labs: Laboratory Last Values WBC 4.5 K/mm3 (4.5-11.0) 03/08/21 04:09 RBC 3.10 M/mm3 (3.65-5.03) L 03/08/21 04:09 Hgb 11.1 gm/dl (10.1-14.3) 03/08/21 04:09 Hct 33.9 % (30.3-42.9) 03/08/21 04:09 MCV 109 fl (79-97) H 03/08/21 04:09 MCH 36 pg (28-32) H 03/08/21 04:09 MCHC 33 % (30-34) 03/08/21 04:09 RDW 16.0 % (13.2-15.2) H 03/08/21 04:09 Plt Count 142 K/mm3 (140-440) 03/08/21 04:09 Lymph % (Auto) 31.2 % (13.4-35.0) 03/08/21 04:09 [place] % (Auto) 11.8 % (0.0-7.3) H 03/08/21 04:09 Eos % (Auto) 2.2 % (0.0-4.3) 03/08/21 04:09 Baso % (Auto) 0.8 % (0.0-1.8) 03/08/21 04:09 Lymph # (Auto) 1.4 K/mm3 (1.2-5.4) 03/08/21 04:09 [place] # (Auto) 0.5 K/mm3 (0.0-0.8) 03/08/21 04:09 Eos # (Auto) 0.1 K/mm3 (0.0-0.4) 03/08/21 04:09 Baso # (Auto) 0.0 K/mm3 (0.0-0.1) 03/08/21 04:09 Add Manual Diff Complete 03/07/21 05:23 Total Counted 100 03/07/21 05:23 Seg Neutrophils % 54.0 % (40.0-70.0) 03/08/21 04:09 Seg Neuts % (Manual) 65.0 % (40.0-70.0) 03/07/21 05:23 Band Neutrophils % 0 % 03/07/21 05:23 Lymphocytes % (Manual) 17.0 % (13.4-35.0) 03/07/21 05:23 Reactive Lymphs % (Man) 0 % 03/07/21 05:23 Monocytes % (Manual) 16.0 % (0.0-7.3) H 03/07/21 05:23 Eosinophils % (Manual) 1.0 % (0.0-4.3) 03/07/21 05:23 Basophils % (Manual) 1.0 % (0.0-1.8) 03/07/21 05:23 Metamyelocytes % 0 % 03/07/21 05:23 Myelocytes % 0 % 03/07/21 05:23 Promyelocytes % 0 % 03/07/21 05:23 Blast Cells % 0 % 03/07/21 05:23 Nucleated RBC % Not Reportable 03/07/21 05:23 Seg Neutrophils # 2.5 K/mm3 (1.8-7.7) 03/08/21 04:09 Seg Neutrophils # Man 2.5 K/mm3 (1.8-7.7) 03/07/21 05:23 Band Neutrophils # 0.0 K/mm3 03/07/21 05:23 Lymphocytes # (Manual) 0.7 K/mm3 (1.2-5.4) L 03/07/21 05:23 Abs React Lymphs (Man) 0.0 K/mm3 03/07/21 05:23 Monocytes # (Manual) 0.6 K/mm3 (0.0-0.8) 03/07/21 05:23 Eosinophils # (Manual) 0.0 K/mm3 (0.0-0.4) 03/07/21 05:23 Basophils # (Manual) 0.0 K/mm3 (0.0-0.1) 03/07/21 05:23 Metamyelocytes # 0.0 K/mm3 03/07/21 05:23 Myelocytes # 0.0 K/mm3 03/07/21 05:23 Promyelocytes # 0.0 K/mm3 03/07/21 05:23 Blast Cells # 0.0 K/mm3 03/07/21 05:23 WBC Morphology Not Reportable 03/07/21 05:23 Hypersegmented Neuts Not Reportable 03/07/21 05:23 Hyposegmented Neuts Not Reportable 03/07/21 05:23 Hypogranular Neuts Not Reportable 03/07/21 05:23 Smudge Cells Not Reportable 03/07/21 05:23 Toxic Granulation Not Reportable 03/07/21 05:23 Toxic Vacuolation Not Reportable 03/07/21 05:23 Dohle Bodies Not Reportable 03/07/21 05:23 Pelger-Huet Anomaly Not Reportable 03/07/21 05:23 Luis Rods Not Reportable 03/07/21 05:23 Platelet Estimate Consistent w auto 03/07/21 05:23 Clumped Platelets Not Reportable 03/07/21 05:23 Plt Clumps, EDTA Not Reportable 03/07/21 05:23 Large Platelets Not Reportable 03/07/21 05:23 Giant Platelets Not Reportable 03/07/21 05:23 Platelet Satelliting Not Reportable 03/07/21 05:23 Plt Morphology Comment Not Reportable 03/07/21 05:23 RBC Morphology Normal 03/07/21 05:23 Dimorphic RBCs Not Reportable 03/07/21 05:23 Polychromasia Not Reportable 03/07/21 05:23 Hypochromasia Not Reportable 03/07/21 05:23 Poikilocytosis Not Reportable 03/07/21 05:23 Anisocytosis Not Reportable 03/07/21 05:23 Microcytosis Not Reportable 03/07/21 05:23 Macrocytosis Not Reportable 03/07/21 05:23 Spherocytes Not Reportable 03/07/21 05:23 Pappenheimer Bodies Not Reportable 03/07/21 05:23 Sickle Cells Not Reportable 03/07/21 05:23 Target Cells Not Reportable 03/07/21 05:23 Tear Drop Cells Not Reportable 03/07/21 05:23 Ovalocytes Not Reportable 03/07/21 05:23 Helmet Cells Not Reportable 03/07/21 05:23 [place] Bodies Not Reportable 03/07/21 05:23 [place] Rings Not Reportable 03/07/21 05:23 [place] Cells Not Reportable 03/07/21 05:23 Bite Cells Not Reportable 03/07/21 05:23 Crenated Cell Not Reportable 03/07/21 05:23 Elliptocytes Not Reportable 03/07/21 05:23 Acanthocytes (Spur) Not Reportable 03/07/21 05:23 Rouleaux Not Reportable 03/07/21 05:23 Hemoglobin C Crystals Not Reportable 03/07/21 05:23 Schistocytes Not Reportable 03/07/21 05:23 Malaria parasites Not Reportable 03/07/21 05:23 Paulo Bodies Not Reportable 03/07/21 05:23 Hem Pathologist Commnt No 03/07/21 05:23 PT 19.4 Sec. (12.2-14.9) H 03/06/21 19:09 INR 1.48 (0.87-1.13) H 03/06/21 19:09 Sodium 138 mmol/L (137-145) 03/08/21 04:09 Potassium 3.6 mmol/L (3.6-5.0) 03/08/21 04:09 Chloride 104.6 mmol/L (98-107) 03/08/21 04:09 Carbon Dioxide 24 mmol/L (22-30) 03/08/21 04:09 Anion Gap 13 mmol/L 03/08/21 04:09 BUN 20 mg/dL (7-17) H 03/08/21 04:09 Creatinine 1.0 mg/dL (0.6-1.2) 03/08/21 04:09 Estimated GFR 55 ml/min 03/08/21 04:09 BUN/Creatinine Ratio 20 % 03/08/21 04:09 Glucose 110 mg/dL (65-100) H 03/08/21 04:09 Calcium 8.7 mg/dL (8.4-10.2) 03/08/21 04:09 Iron 51 ug/dL (37-170) 03/08/21 04:09 TIBC 71 mcg/dL (250-450) L 03/08/21 04:09 Ferritin 1461.0 ng/mL (10.0-200.0) H 03/08/21 04:09 Total Bilirubin 2.00 mg/dL (0.1-1.2) H 03/08/21 04:09 AST 43 units/L (5-40) H 03/08/21 04:09 ALT 18 units/L (7-56) 03/08/21 04:09 Alkaline Phosphatase 75 units/L (35-129) 03/08/21 04:09 Total Protein 5.5 g/dL (6.3-8.2) L 03/08/21 04:09 Albumin 2.4 g/dL (3.9-5) L 03/08/21 04:09 Albumin/Globulin Ratio 0.8 % 03/08/21 04:09 Lipase 19 units/L (13-60) 03/06/21 19:09 Vitamin B12 > 2000 pg/mL (211-911) H 03/08/21 04:09 Coronavirus (PCR) Positive (Negative) A 03/07/21 09:33 Hep Bs Antigen Non-reactive (Negative) 03/08/21 04:09 Hepatitis C Antibody Non-reactive (NonReactive) 03/08/21 04:09 Active Medications - Current Medications Current Medications: Generic Name Dose Route Start Last Admin Trade Name Freq PRN Reason Stop Dose Admin Acetaminophen 650 mg 03/06/21 21:58 Acetaminophen 325 Mg Tab PO Q4H PRN Pain MILD(1-3)/Fever >100.5/SALINAS Albuterol 2.5 mg 03/06/21 21:58 03/07/21 11:57 Albuterol 2.5 Mg/3 Ml Nebu IH 2.5 mg Q4HRT PRN Administration Shortness Of Breath Albuterol/Ipratropium 1 ampul 03/07/21 02:00 03/08/21 08:47 Ipratropium/Albuterol Sulfate 3 Ml Ampul.Neb IH 1 ampul Q6HRT ARUN Administration Diltiazem HCl 180 mg 03/07/21 10:00 03/07/21 10:00 Diltiazem Cd 180 Mg Cap PO 180 mg QDAY ARUN Administration Folic Acid 1 mg 03/07/21 10:00 03/07/21 11:57 Folic Acid 1 Mg Tab PO 1 mg QDAY ARUN Administration Morphine Sulfate 1 mg 03/07/21 11:00 Morphine 2 Mg/1 Ml Inj IV Q4H PRN Pain, Moderate (4-6) Multivitamins 1 each 03/07/21 10:00 03/07/21 11:57 Multivitamins ,Therapeutic Tab PO 1 each QDAY ARUN Administration Ondansetron HCl 4 mg 03/06/21 21:58 Ondansetron 4 Mg/2 Ml Inj IV Q8H PRN Nausea And Vomiting Pantoprazole Sodium 40 mg 03/07/21 11:00 03/08/21 08:47 Pantoprazole 40 Mg Tab PO 40 mg QDAC ARUN Administration Sodium Chloride 10 ml 03/06/21 22:00 03/07/21 22:12 Sodium Chloride 0.9% 10 Ml Flush Syringe IV 10 ml BID ARUN Administration Sodium Chloride 10 ml 03/06/21 21:58 Sodium Chloride 0.9% 10 Ml Flush Syringe IV PRN PRN LINE FLUSH Thiamine HCl 100 mg 03/07/21 10:00 03/07/21 11:57 Thiamine 100 Mg Tab PO 100 mg QDAY ARUN Administration
[2021-03-08] MEDS: MULTIVITAMINS ,THERAPEUTIC TAB PO SCH (10:50)
[2021-03-08] MEDS: FOLIC ACID 1 MG TAB PO SCH (10:50)
[2021-03-08] MEDS: dilTIAZem CD 180 MG CAP PO SCH (10:50)
[2021-03-08] MEDS: THIAMINE 100 MG TAB PO SCH (10:51)
--- NOTE | 2021-03-08 13:37 | Gastroenterology Progress Note ---
Assessment and Plan - Patient Problems (1) Alcoholic liver disease Current Visit: Yes Status: Acute Plan to address problem: - Continue MVI therapy; no need for CIWA since resident of Rehab and over 2 weeks since last EtOH. - Liver serologies negative (high ferritin from EtOH probably, but will need HFE eventually) and US no mass. - Paracentesis with fluid for cell count as well as cytology given age/gender. - Start diuretics today and add albumin given level 1.8. - Will continue protonix; hold beta blockers for now given use of diltiazem already. - Recommend stop narcotics and no benzos. (2) Ascites Current Visit: Yes Status: Acute (3) Macrocytic anemia Current Visit: Yes Status: Acute Plan to address problem: - B12 level WNL and likely due to EtOH liver disease. - Patient has a hx of rectal bleeding, and no recent endoscopy (here or [place]); eventual endoscopy when clinically improved. Subjective Date of service: 03/08/21 Principal diagnosis: Liver Disease Interval history: The patient feels better without fevers, N/V, or severe abdominal pain. She has not had paracentesis yet, but is tolerating other meds. Objective - Constitutional Vitals: Temp Pulse Resp BP Pulse Ox 98.1 F 75 18 111/64 98 03/08/21 12:35 03/08/21 12:35 03/08/21 12:35 03/08/21 12:35 03/08/21 12:35 General appearance: no acute distress, obese - EENT ENT: hearing intact, clear oral mucosa - Respiratory Respiratory effort: normal Respiratory: bilateral: CTA - Cardiovascular Rhythm: regular Heart Sounds: Present: S1 & S2 - Gastrointestinal General gastrointestinal: Present: soft, non-tender, distended (Mild/moderate ascites) - Labs CBC & Chem 7: 03/08/21 04:09 03/08/21 04:09 Labs: Laboratory Results - last 24 hr 03/07/21 03/08/21 03/08/21 09:33 04:09 04:09 WBC RBC Hgb Hct MCV MCH MCHC RDW Plt Count Lymph % (Auto) [place] % (Auto) Eos % (Auto) Baso % (Auto) Lymph # (Auto) [place] # (Auto) Eos # (Auto) Baso # (Auto) Seg Neutrophils % Seg Neutrophils # Sodium 138 Potassium 3.6 Chloride 104.6 Carbon Dioxide 24 Anion Gap 13 BUN 20 H Creatinine 1.0 Estimated GFR 55 BUN/Creatinine Ratio 20 Glucose 110 H Calcium 8.7 Iron 51 TIBC 71 L Ferritin Total Bilirubin 2.00 H AST 43 H ALT 18 Alkaline Phosphatase 75 Total Protein 5.5 L Albumin 2.4 L Albumin/Globulin Ratio 0.8 Vitamin B12 Coronavirus (PCR) Positive A Hep Bs Antigen Hepatitis C Antibody Non-reactive 03/08/21 03/08/21 03/08/21 04:09 04:09 04:09 WBC 4.5 RBC 3.10 L Hgb 11.1 Hct 33.9 MCV 109 H MCH 36 H MCHC 33 RDW 16.0 H Plt Count 142 Lymph % (Auto) 31.2 [place] % (Auto) 11.8 H Eos % (Auto) 2.2 Baso % (Auto) 0.8 Lymph # (Auto) 1.4 [place] # (Auto) 0.5 Eos # (Auto) 0.1 Baso # (Auto) 0.0 Seg Neutrophils % 54.0 Seg Neutrophils # 2.5 Sodium Potassium Chloride Carbon Dioxide Anion Gap BUN Creatinine Estimated GFR BUN/Creatinine Ratio Glucose Calcium Iron TIBC Ferritin 1461.0 H Total Bilirubin AST ALT Alkaline Phosphatase Total Protein Albumin Albumin/Globulin Ratio Vitamin B12 Coronavirus (PCR) Hep Bs Antigen Non-reactive Hepatitis C Antibody 03/08/21 04:09 WBC RBC Hgb Hct MCV MCH MCHC RDW Plt Count Lymph % (Auto) [place] % (Auto) Eos % (Auto) Baso % (Auto) Lymph # (Auto) [place] # (Auto) Eos # (Auto) Baso # (Auto) Seg Neutrophils % Seg Neutrophils # Sodium Potassium Chloride Carbon Dioxide Anion Gap BUN Creatinine Estimated GFR BUN/Creatinine Ratio Glucose Calcium Iron TIBC Ferritin Total Bilirubin AST ALT Alkaline Phosphatase Total Protein Albumin Albumin/Globulin Ratio Vitamin B12 > 2000 H Coronavirus (PCR) Hep Bs Antigen Hepatitis C Antibody
[2021-03-08] MEDS: FUROSEMIDE 20 MG TAB PO SCH (14:15)
[2021-03-08] MEDS: SPIRONOLACTONE 50 MG TAB PO SCH (15:11)
[2021-03-09] MEDS: IPRATROPIUM/ALBUTEROL SULFATE 3 ML AMPUL.NEB IH SCH (05:44)
[2021-03-09] MEDS ORDERED: ALBUTEROL 8.5 GM MDI INHALATION IH PRN (07:57)
--- NOTE | 2021-03-09 07:57 | Progress Note ---
Assessment and Plan Assessment and plan: #Moderate abdominal ascites #Generalized abdominal pain Patient endorses history of significant alcohol dependence that has since ceased. Increase likelihood of decompensated alcoholic cirrhosis. Abdominal ultrasound revealing "Diffusely increased hepatic echogenicity that may reflect chronic hepatic dysfunction or fatty infiltration; moderate volume ascites" Gastroenterology consulted; appreciate recs Ordered ultrasound guided paracentesis for diagnostic and therapeutic relief. Ordered ascitic labs following paracentesis. Starting albumin resuscitation in the setting of albumin being 1.8. Continue multivitamin, thiamine, and folic acid daily. Consider starting lactulose for possible hepatic encephalopathy? Discontinuing any beta-blockers in the setting of patient already receiving diltiazem. Continue to monitor #COVID-19 infection Holding on starting steroids and remdesivir as the patient is currently on room air. Continue to monitor. Continue contact and droplet precautions. #History of alcohol dependence CIWA protocol discontinued as patient endorses last alcoholic beverage >2 weeks ago #Hypertension - home medications: Diltiazem 180 mg daily - current medications: Diltiazem 180 mg daily - SBP goal <160 and DBP goal <90 while inpatient - continue to monitor #Asthma Continue albuterol nebs every 4 hours as needed #Macrocytic anemia Likely in the setting of prolonged alcohol consumption. Continue to monitor #Advanced care planning -Disease education conducted, care plan discussed, diagnoses discussed, prognosis discussed, and patient acknowledges understanding with care plan -Time: +30 min #Social Detailed conversation with patient's daughter about her overall prognosis. Daughter ([phone]) provided additional insight in regards to the patient's mobility and return to previous years. According to the daughter, the patient lacks motivation to be mobile or take care of herself (ADLs). The patient has been found multiple times sitting in her own excrement and waist due to a lack of desire to get up from the bed. The patient has an alcohol history of appro ximately 35-40 years. The reason the patient is not currently consuming alcohol is due to her recent admissions to hospitals and/for rehab/nursing homes. The daughter endorses not being willing to take care of the patient any further (has been taking care of the patient for approximately 20 years). The daughter also does not believe that patient's granddaughter will be a viable option, as she h as 3 young children all under the age of 4. The daughter is willing to place the patient in a longterm upon discharge. Case management will be made aware for dispo purposes. Disposition Plan: Continue medical management Total Time Spent with Patient (Minutes): 45 minutes History Interval history: No acute events overnight. Hospitalist Physical - Constitutional Vitals: Temp Pulse Resp BP Pulse Ox 98.2 F 82 18 140/66 98 03/08/21 22:57 03/08/21 22:57 03/08/21 22:57 03/08/21 22:57 03/08/21 23:46 General appearance: Present: no acute distress, well-nourished - EENT Eyes: Present: PERRL, EOM intact ENT: hearing intact, clear oral mucosa - Neck Neck: Present: supple, normal ROM - Respiratory Respiratory effort: normal Respiratory: bilateral: diminished - Cardiovascular Rhythm: regular Heart Sounds: Present: S1 & S2 - Extremities Extremities: no ischemia, pulses intact, pulses symmetrical, No edema, normal te mperature, normal color Peripheral Pulses: within normal limits - Abdominal General gastrointestinal: soft, tender, distended (Moderately distended with ascites), normal bowel sounds Localized gastrointestinal: tender: diffuse - Integumentary Integumentary: Present: clear, warm, dry - Psychiatric Psychiatric: appropriate mood/affect - Neurologic Neurologic: CNII-XII intact, moves all extremities - Allied Health Allied health notes reviewed: nursing Results - Labs CBC & Chem 7: 03/08/21 04:09 03/08/21 04:09 Labs: Laboratory Last Values WBC 4.5 K/mm3 (4.5-11.0) 03/08/21 04:09 RBC 3.10 M/mm3 (3.65-5.03) L 03/08/21 04:09 Hgb 11.1 gm/dl (10.1-14.3) 03/08/21 04:09 Hct 33.9 % (30.3-42.9) 03/08/21 04:09 MCV 109 fl (79-97) H 03/08/21 04:09 MCH 36 pg (28-32) H 03/08/21 04:09 MCHC 33 % (30-34) 03/08/21 04:09 RDW 16.0 % (13.2-15.2) H 03/08/21 04:09 Plt Count 142 K/mm3 (140-440) 03/08/21 04:09 Lymph % (Auto) 31.2 % (13.4-35.0) 03/08/21 04:09 Divide % (Auto) 11.8 % (0.0-7.3) H 03/08/21 04:09 Eos % (Auto) 2.2 % (0.0-4.3) 03/08/21 04:09 Baso % (Auto) 0.8 % (0.0-1.8) 03/08/21 04:09 Lymph # (Auto) 1.4 K/mm3 (1.2-5.4) 03/08/21 04:09 Divide # (Auto) 0.5 K/mm3 (0.0-0.8) 03/08/21 04:09 Eos # (Auto) 0.1 K/mm3 (0.0-0.4) 03/08/21 04:09 Baso # (Auto) 0.0 K/mm3 (0.0-0.1) 03/08/21 04:09 Add Manual Diff Complete 03/07/21 05:23 Total Counted 100 03/07/21 05:23 Seg Neutrophils % 54.0 % (40.0-70.0) 03/08/21 04:09 Seg Neuts % (Manual) 65.0 % (40.0-70.0) 03/07/21 05:23 Band Neutrophils % 0 % 03/07/21 05:23 Lymphocytes % (Manual) 17.0 % (13.4-35.0) 03/07/21 05:23 Reactive Lymphs % (Man) 0 % 03/07/21 05:23 Monocytes % (Manual) 16.0 % (0.0-7.3) H 03/07/21 05:23 Eosinophils % (Manual) 1.0 % (0.0-4.3) 03/07/21 05:23 Basophils % (Manual) 1.0 % (0.0-1.8) 03/07/21 05:23 Metamyelocytes % 0 % 03/07/21 05:23 Myelocytes % 0 % 03/07/21 05:23 Promyelocytes % 0 % 03/07/21 05:23 Blast Cells % 0 % 03/07/21 05:23 Nucleated RBC % Not Reportable 03/07/21 05:23 Seg Neutrophils # 2.5 K/mm3 (1.8-7.7) 03/08/21 04:09 Seg Neutrophils # Man 2.5 K/mm3 (1.8-7.7) 03/07/21 05:23 Band Neutrophils # 0.0 K/mm3 03/07/21 05:23 Lymphocytes # (Manual) 0.7 K/mm3 (1.2-5.4) L 03/07/21 05:23 Abs React Lymphs (Man) 0.0 K/mm3 03/07/21 05:23 Monocytes # (Manual) 0.6 K/mm3 (0.0-0.8) 03/07/21 05:23 Eosinophils # (Manual) 0.0 K/mm3 (0.0-0.4) 03/07/21 05:23 Basophils # (Manual) 0.0 K/mm3 (0.0-0.1) 03/07/21 05:23 Metamyelocytes # 0.0 K/mm3 03/07/21 05:23 Myelocytes # 0.0 K/mm3 03/07/21 05:23 Promyelocytes # 0.0 K/mm3 03/07/21 05:23 Blast Cells # 0.0 K/mm3 03/07/21 05:23 WBC Morphology Not Reportable 03/07/21 05:23 Hypersegmented Neuts Not Reportable 03/07/21 05:23 Hyposegmented Neuts Not Reportable 03/07/21 05:23 Hypogranular Neuts Not Reportable 03/07/21 05:23 Smudge Cells Not Reportable 03/07/21 05:23 Toxic Granulation Not Reportable 03/07/21 05:23 Toxic Vacuolation Not Reportable 03/07/21 05:23 Dohle Bodies Not Reportable 03/07/21 05:23 Pelger-Huet Anomaly Not Reportable 03/07/21 05:23 Luis Rods Not Reportable 03/07/21 05:23 Platelet Estimate Consistent w auto 03/07/21 05:23 Clumped Platelets Not Reportable 03/07/21 05:23 Plt Clumps, EDTA Not Reportable 03/07/21 05:23 Large Platelets Not Reportable 03/07/21 05:23 Giant Platelets Not Reportable 03/07/21 05:23 Platelet Satelliting Not Reportable 03/07/21 05:23 Plt Morphology Comment Not Reportable 03/07/21 05:23 RBC Morphology Normal 03/07/21 05:23 Dimorphic RBCs Not Reportable 03/07/21 05:23 Polychromasia Not Reportable 03/07/21 05:23 Hypochromasia Not Reportable 03/07/21 05:23 Poikilocytosis Not Reportable 03/07/21 05:23 Anisocytosis Not Reportable 03/07/21 05:23 Microcytosis Not Reportable 03/07/21 05:23 Macrocytosis Not Reportable 03/07/21 05:23 Spherocytes Not Reportable 03/07/21 05:23 Pappenheimer Bodies Not Reportable 03/07/21 05:23 Sickle Cells Not Reportable 03/07/21 05:23 Target Cells Not Reportable 03/07/21 05:23 Tear Drop Cells Not Reportable 03/07/21 05:23 Ovalocytes Not Reportable 03/07/21 05:23 Helmet Cells Not Reportable 03/07/21 05:23 [place] Bodies Not Reportable 03/07/21 05:23 [place] Rings Not Reportable 03/07/21 05:23 Betty Cells Not Reportable 03/07/21 05:23 Bite Cells Not Reportable 03/07/21 05:23 Crenated Cell Not Reportable 03/07/21 05:23 Elliptocytes Not Reportable 03/07/21 05:23 Acanthocytes (Spur) Not Reportable 03/07/21 05:23 Rouleaux Not Reportable 03/07/21 05:23 Hemoglobin C Crystals Not Reportable 03/07/21 05:23 Schistocytes Not Reportable 03/07/21 05:23 Malaria parasites Not Reportable 03/07/21 05:23 Paulo Bodies Not Reportable 03/07/21 05:23 Hem Pathologist Commnt No 03/07/21 05:23 PT 19.4 Sec. (12.2-14.9) H 03/06/21 19:09 INR 1.48 (0.87-1.13) H 03/06/21 19:09 Sodium 138 mmol/L (137-145) 03/08/21 04:09 Potassium 3.6 mmol/L (3.6-5.0) 03/08/21 04:09 Chloride 104.6 mmol/L (98-107) 03/08/21 04:09 Carbon Dioxide 24 mmol/L (22-30) 03/08/21 04:09 Anion Gap 13 mmol/L 03/08/21 04:09 BUN 20 mg/dL (7-17) H 03/08/21 04:09 Creatinine 1.0 mg/dL (0.6-1.2) 03/08/21 04:09 Estimated GFR 55 ml/min 03/08/21 04:09 BUN/Creatinine Ratio 20 % 03/08/21 04:09 Glucose 110 mg/dL (65-100) H 03/08/21 04:09 Calcium 8.7 mg/dL (8.4-10.2) 03/08/21 04:09 Iron 51 ug/dL (37-170) 03/08/21 04:09 TIBC 71 mcg/dL (250-450) L 03/08/21 04:09 Ferritin 1461.0 ng/mL (10.0-200.0) H 03/08/21 04:09 Total Bilirubin 2.00 mg/dL (0.1-1.2) H 03/08/21 04:09 AST 43 units/L (5-40) H 03/08/21 04:09 ALT 18 units/L (7-56) 03/08/21 04:09 Alkaline Phosphatase 75 units/L (35-129) 03/08/21 04:09 Total Protein 5.5 g/dL (6.3-8.2) L 03/08/21 04:09 Albumin 2.4 g/dL (3.9-5) L 03/08/21 04:09 Albumin/Globulin Ratio 0.8 % 03/08/21 04:09 Lipase 19 units/L (13-60) 03/06/21 19:09 Vitamin B12 > 2000 pg/mL (211-911) H 03/08/21 04:09 Coronavirus (PCR) Positive (Negative) A 03/07/21 09:33 Hep Bs Antigen Non-reactive (Negative) 03/08/21 04:09 Hepatitis C Antibody Non-reactive (NonReactive) 03/08/21 04:09 [place]/IV: Voiding Method External Female Catheter Active Medications - Current Medications Current Medications: Generic Name Dose Route Start Last Admin Trade Name Freq PRN Reason Stop Dose Admin Acetaminophen 650 mg 03/06/21 21:58 Acetaminophen 325 Mg Tab PO Q4H PRN Pain MILD(1-3)/Fever >100.5/SALINAS Albuterol 2.5 mg 03/06/21 21:58 03/07/21 11:57 Albuterol 2.5 Mg/3 Ml Nebu IH 2.5 mg Q4HRT PRN Administration Shortness Of Breath Albuterol/Ipratropium 1 ampul 03/07/21 02:00 03/09/21 05:44 Ipratropium/Albuterol Sulfate 3 Ml Ampul.Neb IH Not Given Q6HRT ARUN Diltiazem HCl 180 mg 03/07/21 10:00 03/08/21 10:50 Diltiazem Cd 180 Mg Cap PO 180 mg QDAY ARUN Administration Furosemide 20 mg 03/08/21 14:00 03/08/21 14:15 Furosemide 20 Mg Tab PO 20 mg QDAY ARUN Administration Multivitamins 1 each 03/07/21 10:00 03/08/21 10:50 Multivitamins ,Therapeutic Tab PO 1 each QDAY ARUN Administration Ondansetron HCl 4 mg 03/06/21 21:58 Ondansetron 4 Mg/2 Ml Inj IV Q8H PRN Nausea And Vomiting Pantoprazole Sodium 40 mg 03/07/21 11:00 03/08/21 08:47 Pantoprazole 40 Mg Tab PO 40 mg QDAC ARUN Administration Sodium Chloride 10 ml 03/06/21 22:00 03/08/21 22:47 Sodium Chloride 0.9% 10 Ml Flush Syringe IV 10 ml BID ARUN Administration Sodium Chloride 10 ml 03/06/21 21:58 Sodium Chloride 0.9% 10 Ml Flush Syringe IV PRN PRN LINE FLUSH Spironolactone 50 mg 03/08/21 14:00 03/08/21 15:11 Spironolactone 50 Mg Tab PO Not Given QDAY ARUN
[2021-03-09] MEDS: SPIRONOLACTONE 50 MG TAB PO SCH (09:04)
[2021-03-09] MEDS: PANTOPRAZOLE 40 MG TAB PO SCH (09:04)
[2021-03-09] MEDS: FUROSEMIDE 20 MG TAB PO SCH (09:04)
[2021-03-09] MEDS: MULTIVITAMINS ,THERAPEUTIC TAB PO SCH (09:05)
[2021-03-09 09:38] LABS: Basophils % (Auto) 0.4 % (0.0-1.8); Eosinophils # (Auto) 0.1 K/mm3 (0.0-0.4); Eosinophils % (Auto) 2.1 % (0.0-4.3); Hematocrit 34.3 % (30.3-42.9); Hemoglobin 11.2 gm/dl (10.1-14.3); Lymphocytes # (Auto) 1.3 K/mm3 (1.2-5.4); Lymphocytes % (Auto) 30.4 % (13.4-35.0); Mean Corpuscular HGB Conc 33 % (30-34); Mean Corpuscular Volume 108 fl (79-97); Monocytes # (Auto) 0.5 K/mm3 (0.0-0.8); Platelet Count 115 K/mm3 (140-440); Red Blood Count 3.18 M/mm3 (3.65-5.03)
[2021-03-09 09:47] LABS: INR 1.74 (0.87-1.13)
[2021-03-09] MEDS: dilTIAZem CD 180 MG CAP PO SCH (10:18)
[2021-03-09 11:07] LABS: Alanine Aminotransferase 16 units/L (7-56); Albumin 2.1 g/dL (3.9-5); BUN/Creatinine Ratio 19; Blood Urea Nitrogen 15 mg/dL (7-17); Calcium 8.6 mg/dL (8.4-10.2); Hemolysis Index 51
--- NOTE | 2021-03-09 14:11 | Procedure Note ---
Date of procedure: 03/09/21 Pre-op diagnosis: ascites Post-op diagnosis: same Procedure: US paracentesis Findings: moderate ascites Anesthesia: local Surgeon: CODIE PEREZ Estimated blood loss: none Pathology: list (120cc) Specimen disposition: to lab Condition: stable Disposition: floor
--- NOTE | 2021-03-09 14:16 | Ultrasound Report ---
ULTRASOUND-GUIDED PARACENTESIS HISTORY: Assess abdominal ascites. PROCEDURE: The risks (including but not limited to bleeding, infection, and bowel injury) and benefi ts were explained to the patient and informed consent was obtained. A time out procedure was perform ed. Ultrasound was used to evaluate the abdomen and locate the largest ascites fluid pocket. Once the sk in was marked, the procedure site was prepped and draped in the usual sterile fashion and lidocaine w as used for local anesthesia. A 5 Yoruba centesis catheter was placed. The patient was monitored cl osely throughout the procedure, and a total of 4700 mL of yellow fluid was aspirated. Samples were s ent to the lab for further evaluation per the primary clinicians orders. The patient tolerated the procedure well with no complications. IMPRESSION: Successful ultrasound-guided paracentesis as described. Signer Name: Anjel Enriquez Jr, MD Signed: 03/09/2021 2:11 PM Workstation Name: [id number]
[2021-03-09 14:47] LABS: Total Cells Counted 100 /mm3
--- NOTE | 2021-03-09 19:29 | Gastroenterology Progress Note ---
Assessment and Plan - Patient Problems (1) Alcoholic liver disease Current Visit: Yes Status: Acute Plan to address problem: - Continue MVI therapy; no need for CIWA since resident of Rehab and over 2 weeks since last EtOH. - Liver serologies negative (high ferritin from EtOH probably, but will need HFE eventually) and US no mass. - Paracentesis cell count not consistent with SBP. - Start diuretics yesterday; continue as outpatient. - Will continue protonix; hold beta blockers for now given use of diltiazem already. - Recommend no narcotics and no benzos. - If AM labs OK, then OK to transition back to Rehab per our service. (2) Ascites Current Visit: Yes Status: Acute (3) Macrocytic anemia Current Visit: Yes Status: Acute Plan to address problem: - B12 level WNL and likely due to EtOH liver disease. - Patient has a hx of rectal bleeding, and no recent endoscopy (here or [facility]); eventual endoscopy when clinically improved. Subjective Date of service: 03/09/21 Principal diagnosis: Liver Disease Interval history: The patient underwent paracentesis without event. No fevers, and no severe abdominal pain. Denies blood in stool. Objective - Constitutional Vitals: Temp Pulse Resp BP Pulse Ox 99.3 F 80 20 111/65 97 03/09/21 17:06 03/09/21 17:06 03/09/21 17:06 03/09/21 17:06 03/09/21 17:06 General appearance: no acute distress - EENT Eyes: PERRL, EOM intact - Respiratory Respiratory effort: normal Respiratory: bilateral: CTA - Cardiovascular Rhythm: regular Heart Sounds: Present: S1 & S2 - Gastrointestinal General gastrointestinal: Present: soft, non-tender, distended (Moderate ascites) - Labs CBC & Chem 7: 03/09/21 08:40 03/09/21 08:40 Labs: Laboratory Results - last 24 hr 03/09/21 03/09/21 03/09/21 08:40 08:40 08:40 WBC 4.2 L RBC 3.18 L Hgb 11.2 Hct 34.3 MCV 108 H MCH 35 H MCHC 33 RDW 16.0 H Plt Count 115 L Lymph % (Auto) 30.4 Ocean % (Auto) 13.0 H Eos % (Auto) 2.1 Baso % (Auto) 0.4 Lymph # (Auto) 1.3 [place] # (Auto) 0.5 Eos # (Auto) 0.1 Baso # (Auto) 0.0 Seg Neutrophils % 54.1 Seg Neutrophils # 2.3 PT 22.0 H INR 1.74 H Sodium 141 Potassium 3.2 L Chloride 107.1 H Carbon Dioxide 20 L Anion Gap 17 BUN 15 Creatinine 0.8 Estimated GFR > 60 BUN/Creatinine Ratio 19 Glucose 75 Calcium 8.6 Total Bilirubin 2.00 H AST 49 H ALT 16 Alkaline Phosphatase 64 Total Protein 5.5 L Albumin 2.1 L Albumin/Globulin Ratio 0.6 Fluid Type Fluid Color Fluid Appearance Fluid WBC Fluid RBC Fluid Seg Neutrophils Fluid Lymphocytes Fluid Reactive Lymphs Fluid Monocytes Fluid Eosinophils Fluid Basophils 03/09/21 13:50 WBC RBC Hgb Hct MCV MCH MCHC RDW Plt Count Lymph % (Auto) Ocean % (Auto) Eos % (Auto) Baso % (Auto) Lymph # (Auto) [place] # (Auto) Eos # (Auto) Baso # (Auto) Seg Neutrophils % Seg Neutrophils # PT INR Sodium Potassium Chloride Carbon Dioxide Anion Gap BUN Creatinine Estimated GFR BUN/Creatinine Ratio Glucose Calcium Total Bilirubin AST ALT Alkaline Phosphatase Total Protein Albumin Albumin/Globulin Ratio Fluid Type Ascitic Fluid Color Yellow Fluid Appearance Hazy Fluid WBC 323 Fluid RBC 133 Fluid Seg Neutrophils 12.0 Fluid Lymphocytes 64.0 Fluid Reactive Lymphs 0 Fluid Monocytes 23.0 Fluid Eosinophils 1.0 Fluid Basophils 0
[2021-03-10 07:51] LABS: Hematocrit 35.6 % (30.3-42.9); Hemoglobin 11.6 gm/dl (10.1-14.3); Mean Corpuscular HGB Conc 33 % (30-34); Mean Corpuscular Volume 107 fl (79-97); Red Blood Count 3.33 M/mm3 (3.65-5.03); Red Cell Distribution Width 15.9 % (13.2-15.2)
[2021-03-10 07:59] LABS: Platelet Count 97 K/mm3 (140-440)
[2021-03-10 08:11] LABS: Alanine Aminotransferase 14 units/L (7-56); Albumin 2.1 g/dL (3.9-5); BUN/Creatinine Ratio 16; Blood Urea Nitrogen 13 mg/dL (7-17); Calcium 8.3 mg/dL (8.4-10.2); Hemolysis Index 3
--- NOTE | 2021-03-10 10:46 | Gastroenterology Progress Note ---
Assessment and Plan - Patient Problems (1) Alcoholic liver disease Current Visit: Yes Status: Acute Plan to address problem: - Continue MVI therapy; no need for CIWA since resident of Rehab and over 2 weeks since last EtOH. - Liver serologies negative (high ferritin from EtOH probably, but will need HFE eventually) and US no mass. - Paracentesis cell count not consistent with SBP. - Started diuretics Tuesday; continue as outpatient. - Will continue protonix; hold beta blockers for now given use of diltiazem already. - Recommend no narcotics and no benzos. - If AM labs OK, then OK to transition back to Rehab per our service. - Will sign off; please call if needed. (2) Ascites Current Visit: Yes Status: Acute (3) Macrocytic anemia Current Visit: Yes Status: Acute Plan to address problem: - B12 level WNL and likely due to EtOH liver disease. - Patient has a hx of rectal bleeding, and no recent endoscopy (here or [place]); eventual endoscopy when clinically improved. Subjective Date of service: 03/10/21 Principal diagnosis: Liver Disease Interval history: The patient tolerated her paracentesis yesterday without event. She has no N/V/abdominal pain. She is urinating "a lot" since starting her diuretics. Appetite is good, and tolerating PO diet. Objective - Constitutional Vitals: Temp Pulse Resp BP Pulse Ox 98.4 F 80 18 92/48 92 03/10/21 05:16 03/10/21 05:16 03/10/21 05:16 03/10/21 05:16 03/10/21 10:16 General appearance: no acute distress - Respiratory Respiratory effort: normal Respiratory: bilateral: CTA - Cardiovascular Rhythm: regular Heart Sounds: Present: S1 & S2 - Extremities Extremities: no ischemia, No edema - Gastrointestinal General gastrointestinal: Present: soft, non-tender, distended (Mild ascites) - Labs CBC & Chem 7: 03/10/21 06:17 03/10/21 06:17 Labs: Laboratory Results - last 24 hr 03/09/21 03/09/21 03/10/21 08:40 13:50 06:17 WBC 4.0 L RBC 3.33 L Hgb 11.6 Hct 35.6 MCV 107 H MCH 35 H MCHC 33 RDW 15.9 H Plt Count 97 L Sodium 141 Potassium 3.2 L Chloride 107.1 H Carbon Dioxide 20 L Anion Gap 17 BUN 15 Creatinine 0.8 Estimated GFR > 60 BUN/Creatinine Ratio 19 Glucose 75 Calcium 8.6 Total Bilirubin 2.00 H AST 49 H ALT 16 Alkaline Phosphatase 64 Total Protein 5.5 L Albumin 2.1 L Albumin/Globulin Ratio 0.6 Fluid Type Ascitic Fluid Color Yellow Fluid Appearance Hazy Fluid WBC 323 Fluid RBC 133 Fluid Seg Neutrophils 12.0 Fluid Lymphocytes 64.0 Fluid Reactive Lymphs 0 Fluid Monocytes 23.0 Fluid Eosinophils 1.0 Fluid Basophils 0 03/10/21 06:17 WBC RBC Hgb Hct MCV MCH MCHC RDW Plt Count Sodium 139 Potassium 2.7 L* Chloride 101.4 Carbon Dioxide 27 D Anion Gap 13 BUN 13 Creatinine 0.8 Estimated GFR > 60 BUN/Creatinine Ratio 16 Glucose 80 Calcium 8.3 L Total Bilirubin 2.30 H AST 39 ALT 14 Alkaline Phosphatase 62 Total Protein 5.2 L Albumin 2.1 L Albumin/Globulin Ratio 0.7 Fluid Type Fluid Color Fluid Appearance Fluid WBC Fluid RBC Fluid Seg Neutrophils Fluid Lymphocytes Fluid Reactive Lymphs Fluid Monocytes Fluid Eosinophils Fluid Basophils
[2021-03-10] MEDS ORDERED: ACETAMINOPHEN 325 MG TAB PO PRN (10:47)
[2021-03-10] MEDS: FUROSEMIDE 20 MG TAB PO SCH (11:02)
[2021-03-10] MEDS: SPIRONOLACTONE 50 MG TAB PO SCH (11:03)
[2021-03-10] MEDS: POTASSIUM CHLORIDE ER 20 MEQ TAB PO SCH ×2 (11:03→17:00)
[2021-03-10] MEDS: PANTOPRAZOLE 40 MG TAB PO SCH (11:03)
[2021-03-10] MEDS: MULTIVITAMINS ,THERAPEUTIC TAB PO SCH (11:03)
[2021-03-10] MEDS: dilTIAZem CD 180 MG CAP PO SCH (11:04)
--- NOTE | 2021-03-10 16:25 | Progress Note ---
Assessment and Plan Assessment and plan: #Moderate abdominal ascites #Generalized abdominal pain #COVID-19 infection #History of alcohol dependence #Hypertension #Hypokalemia #Asthma #Thrombocytopenia #Discharge planning -Patient to return home with family with home health, pending physical therapy evaluation Hospitalist Physical - Physical exam Narrative exam: GENERAL: Well-developed well-nourished. Sitting on the side of the bed in no acute distress. HEENT: Normocephalic. Atraumatic. NECK: Supple. CHEST/LUNGS: CTAB on room air HEART/CARDIOVASCULAR: RRR. No murmur, rubs or gallops appreciated. ABDOMEN: +BS. NT/ND. SKIN: No rashes noted. NEURO: No focal motor deficit. Follows all commands and is ambulatory. MUSCULOSKELETAL: No joint effusion EXTREMITIES: No cyanosis, cubbing or edema. PSYCH: Cooperative. - Constitutional Vitals: Temp Pulse Resp BP Pulse Ox 98.4 F 97 H 18 119/69 96 03/10/21 13:17 03/10/21 13:17 03/10/21 13:17 03/10/21 13:17 03/10/21 13:17 General appearance: Present: no acute distress, well-nourished Results - Labs CBC & Chem 7: 03/10/21 06:17 03/10/21 15:35 Labs: Laboratory Last Values WBC 4.0 K/mm3 (4.5-11.0) L 03/10/21 06:17 RBC 3.33 M/mm3 (3.65-5.03) L 03/10/21 06:17 Hgb 11.6 gm/dl (10.1-14.3) 03/10/21 06:17 Hct 35.6 % (30.3-42.9) 03/10/21 06:17 MCV 107 fl (79-97) H 03/10/21 06:17 MCH 35 pg (28-32) H 03/10/21 06:17 MCHC 33 % (30-34) 03/10/21 06:17 RDW 15.9 % (13.2-15.2) H 03/10/21 06:17 Plt Count 97 K/mm3 (140-440) L 03/10/21 06:17 Lymph % (Auto) 30.4 % (13.4-35.0) 03/09/21 08:40 [place] % (Auto) 13.0 % (0.0-7.3) H 03/09/21 08:40 Eos % (Auto) 2.1 % (0.0-4.3) 03/09/21 08:40 Baso % (Auto) 0.4 % (0.0-1.8) 03/09/21 08:40 Lymph # (Auto) 1.3 K/mm3 (1.2-5.4) 03/09/21 08:40 [place] # (Auto) 0.5 K/mm3 (0.0-0.8) 03/09/21 08:40 Eos # (Auto) 0.1 K/mm3 (0.0-0.4) 03/09/21 08:40 Baso # (Auto) 0.0 K/mm3 (0.0-0.1) 03/09/21 08:40 Add Manual Diff Complete 03/07/21 05:23 Total Counted 100 03/07/21 05:23 Seg Neutrophils % 54.1 % (40.0-70.0) 03/09/21 08:40 Seg Neuts % (Manual) 65.0 % (40.0-70.0) 03/07/21 05:23 Band Neutrophils % 0 % 03/07/21 05:23 Lymphocytes % (Manual) 17.0 % (13.4-35.0) 03/07/21 05:23 Reactive Lymphs % (Man) 0 % 03/07/21 05:23 Monocytes % (Manual) 16.0 % (0.0-7.3) H 03/07/21 05:23 Eosinophils % (Manual) 1.0 % (0.0-4.3) 03/07/21 05:23 Basophils % (Manual) 1.0 % (0.0-1.8) 03/07/21 05:23 Metamyelocytes % 0 % 03/07/21 05:23 Myelocytes % 0 % 03/07/21 05:23 Promyelocytes % 0 % 03/07/21 05:23 Blast Cells % 0 % 03/07/21 05:23 Nucleated RBC % Not Reportable 03/07/21 05:23 Seg Neutrophils # 2.3 K/mm3 (1.8-7.7) 03/09/21 08:40 Seg Neutrophils # Man 2.5 K/mm3 (1.8-7.7) 03/07/21 05:23 Band Neutrophils # 0.0 K/mm3 03/07/21 05:23 Lymphocytes # (Manual) 0.7 K/mm3 (1.2-5.4) L 03/07/21 05:23 Abs React Lymphs (Man) 0.0 K/mm3 03/07/21 05:23 Monocytes # (Manual) 0.6 K/mm3 (0.0-0.8) 03/07/21 05:23 Eosinophils # (Manual) 0.0 K/mm3 (0.0-0.4) 03/07/21 05:23 Basophils # (Manual) 0.0 K/mm3 (0.0-0.1) 03/07/21 05:23 Metamyelocytes # 0.0 K/mm3 03/07/21 05:23 Myelocytes # 0.0 K/mm3 03/07/21 05:23 Promyelocytes # 0.0 K/mm3 03/07/21 05:23 Blast Cells # 0.0 K/mm3 03/07/21 05:23 WBC Morphology Not Reportable 03/07/21 05:23 Hypersegmented Neuts Not Reportable 03/07/21 05:23 Hyposegmented Neuts Not Reportable 03/07/21 05:23 Hypogranular Neuts Not Reportable 03/07/21 05:23 Smudge Cells Not Reportable 03/07/21 05:23 Toxic Granulation Not Reportable 03/07/21 05:23 Toxic Vacuolation Not Reportable 03/07/21 05:23 Dohle Bodies Not Reportable 03/07/21 05:23 Pelger-Huet Anomaly Not Reportable 03/07/21 05:23 Luis Rods Not Reportable 03/07/21 05:23 Platelet Estimate Consistent w auto 03/07/21 05:23 Clumped Platelets Not Reportable 03/07/21 05:23 Plt Clumps, EDTA Not Reportable 03/07/21 05:23 Large Platelets Not Reportable 03/07/21 05:23 Giant Platelets Not Reportable 03/07/21 05:23 Platelet Satelliting Not Reportable 03/07/21 05:23 Plt Morphology Comment Not Reportable 03/07/21 05:23 RBC Morphology Normal 03/07/21 05:23 Dimorphic RBCs Not Reportable 03/07/21 05:23 Polychromasia Not Reportable 03/07/21 05:23 Hypochromasia Not Reportable 03/07/21 05:23 Poikilocytosis Not Reportable 03/07/21 05:23 Anisocytosis Not Reportable 03/07/21 05:23 Microcytosis Not Reportable 03/07/21 05:23 Macrocytosis Not Reportable 03/07/21 05:23 Spherocytes Not Reportable 03/07/21 05:23 Pappenheimer Bodies Not Reportable 03/07/21 05:23 Sickle Cells Not Reportable 03/07/21 05:23 Target Cells Not Reportable 03/07/21 05:23 Tear Drop Cells Not Reportable 03/07/21 05:23 Ovalocytes Not Reportable 03/07/21 05:23 Helmet Cells Not Reportable 03/07/21 05:23 Rascon-[place] Bodies Not Reportable 03/07/21 05:23 Paicines Rings Not Reportable 03/07/21 05:23 Betty Cells Not Reportable 03/07/21 05:23 Bite Cells Not Reportable 03/07/21 05:23 Crenated Cell Not Reportable 03/07/21 05:23 Elliptocytes Not Reportable 03/07/21 05:23 Acanthocytes (Spur) Not Reportable 03/07/21 05:23 Rouleaux Not Reportable 03/07/21 05:23 Hemoglobin C Crystals Not Reportable 03/07/21 05:23 Schistocytes Not Reportable 03/07/21 05:23 Malaria parasites Not Reportable 03/07/21 05:23 Paulo Bodies Not Reportable 03/07/21 05:23 Hem Pathologist Commnt No 03/07/21 05:23 PT 22.0 Sec. (12.2-14.9) H 03/09/21 08:40 INR 1.74 (0.87-1.13) H 03/09/21 08:40 Sodium 139 mmol/L (137-145) 03/10/21 06:17 Potassium 3.2 mmol/L (3.6-5.0) L 03/10/21 15:35 Chloride 101.4 mmol/L (98-107) 03/10/21 06:17 Carbon Dioxide 27 mmol/L (22-30) D 03/10/21 06:17 Anion Gap 13 mmol/L 03/10/21 06:17 BUN 13 mg/dL (7-17) 03/10/21 06:17 Creatinine 0.8 mg/dL (0.6-1.2) 03/10/21 06:17 Estimated GFR > 60 ml/min 03/10/21 06:17 BUN/Creatinine Ratio 16 % 03/10/21 06:17 Glucose 80 mg/dL (65-100) 03/10/21 06:17 Calcium 8.3 mg/dL (8.4-10.2) L 03/10/21 06:17 Iron 51 ug/dL (37-170) 03/08/21 04:09 TIBC 71 mcg/dL (250-450) L 03/08/21 04:09 Ferritin 1461.0 ng/mL (10.0-200.0) H 03/08/21 04:09 Total Bilirubin 2.30 mg/dL (0.1-1.2) H 03/10/21 06:17 AST 39 units/L (5-40) 03/10/21 06:17 ALT 14 units/L (7-56) 03/10/21 06:17 Alkaline Phosphatase 62 units/L (35-129) 03/10/21 06:17 Total Protein 5.2 g/dL (6.3-8.2) L 03/10/21 06:17 Albumin 2.1 g/dL (3.9-5) L 03/10/21 06:17 Albumin/Globulin Ratio 0.7 % 03/10/21 06:17 Lipase 19 units/L (13-60) 03/06/21 19:09 Vitamin B12 > 2000 pg/mL (211-911) H 03/08/21 04:09 Fluid Type Ascitic 03/09/21 13:50 Fluid Color Yellow 03/09/21 13:50 Fluid Appearance Hazy 03/09/21 13:50 Fluid WBC 323 /mm3 03/09/21 13:50 Fluid RBC 133 /mm3 03/09/21 13:50 Fluid Seg Neutrophils 12.0 % 03/09/21 13:50 Fluid Lymphocytes 64.0 % 03/09/21 13:50 Fluid Reactive Lymphs 0 % 03/09/21 13:50 Fluid Monocytes 23.0 % 03/09/21 13:50 Fluid Eosinophils 1.0 % 03/09/21 13:50 Fluid Basophils 0 % 03/09/21 13:50 Coronavirus (PCR) Positive (Negative) A 03/07/21 09:33 Hep Bs Antigen Non-reactive (Negative) 03/08/21 04:09 Hepatitis C Antibody Non-reactive (NonReactive) 03/08/21 04:09 [place]/IV: Voiding Method External Female Catheter Active Medications - Current Medications Current Medications: Generic Name Dose Route Start Last Admin Trade Name Freq PRN Reason Stop Dose Admin Acetaminophen 650 mg 03/10/21 10:47 Acetaminophen 325 Mg Tab PO Q6H PRN Pain MILD(1-3)/Fever >100.5/SALINAS Albuterol 2 puff 03/09/21 07:57 Albuterol 8.5 Gm Mdi Inhalation IH Q6HRT PRN Shortness Of Breath Diltiazem HCl 180 mg 03/07/21 10:00 03/10/21 11:04 Diltiazem Cd 180 Mg Cap PO 180 mg QDAY ARUN Administration Furosemide 20 mg 03/08/21 14:00 03/10/21 11:02 Furosemide 20 Mg Tab PO 20 mg QDAY ARUN Administration Multivitamins 1 each 03/07/21 10:00 03/10/21 11:03 Multivitamins ,Therapeutic Tab PO 1 each QDAY ARUN Administration Ondansetron HCl 4 mg 03/06/21 21:58 Ondansetron 4 Mg/2 Ml Inj IV Q8H PRN Nausea And Vomiting Pantoprazole Sodium 40 mg 03/07/21 11:00 03/10/21 11:03 Pantoprazole 40 Mg Tab PO 40 mg QDAC ARUN Administration Potassium Chloride 10 meq 03/11/21 10:00 Potassium Chloride Er 10 Meq Tab PO QDAY ARUN Sodium Chloride 10 ml 03/06/21 22:00 03/10/21 14:04 Sodium Chloride 0.9% 10 Ml Flush Syringe IV 10 ml BID ARUN Administration Sodium Chloride 10 ml 03/06/21 21:58 Sodium Chloride 0.9% 10 Ml Flush Syringe IV PRN PRN LINE FLUSH Spironolactone 50 mg 03/08/21 14:00 03/10/21 11:03 Spironolactone 50 Mg Tab PO 50 mg QDAY ARUN Administration
[2021-03-11 09:22] LABS: BUN/Creatinine Ratio 16; Blood Urea Nitrogen 14 mg/dL (7-17); Calcium 8.4 mg/dL (8.4-10.2); Hemolysis Index 2
[2021-03-11] MEDS ORDERED: POTASSIUM CHLORIDE ER 10 MEQ TAB PO SCH (10:00)
[2021-03-11] MEDS: SPIRONOLACTONE 50 MG TAB PO SCH (10:40)
[2021-03-11] MEDS: dilTIAZem CD 180 MG CAP PO SCH (10:40)
[2021-03-11] MEDS: FUROSEMIDE 20 MG TAB PO SCH (10:40)
[2021-03-11] MEDS: MULTIVITAMINS ,THERAPEUTIC TAB PO SCH (10:40)
[2021-03-11] MEDS: PANTOPRAZOLE 40 MG TAB PO SCH (10:40)
--- NOTE | 2021-03-11 11:32 | Discharge Summary ---
Providers - Providers Date of Admission: 03/06/21 21:58 Attending physician: TASHA PAYAN MD 03/06/21 21:58 Consult to Physician [CONS] Routine Comment: Consulting Provider: ALESSIA DEVRIES Physician Instructions: Reason For Exam: ascities 03/07/21 07:54 Consult to Physician [CONS] Routine Comment: Consulting Provider: [place] ENGLISH Physician Instructions: Reason For Exam: Acute ascites (likely 2/2 ETOH dependence) 03/10/21 13:47 Physical Therapy Evaluation and Treat [CONS] Stat Comment: For Wheelchair at home Reason For Exam: eval and treat Primary care physician: [employer] MANAGER Hospitalization Condition: Stable Disposition: 30 STILL A PATIENT Exam - Constitutional Vitals: Temp Pulse Resp BP Pulse Ox 98.4 F 96 H 19 100/66 92 03/11/21 08:31 03/11/21 08:31 03/11/21 08:31 03/11/21 10:28 03/11/21 08:31 Plan Care Plan Goals: Please continue to not drink. Your liver is showing signs of damage due to excessive drinking. Please start taking all medications prescribed daily. Make sure to follow-up with a primary care doctor after discharge. Please follow-up with the fence erector supervisor Dr. Dunham within 2 weeks. Please wear the oxygen as advised. If your oxygen saturations remain below 92% while on oxygen please return to the hospital. Please follow CDC guidelines for isolation for COVID-19 infection. You have to self quarantine starting 5 days after your positive test (03/07/21). You must continue to self quarantine as long as you have symptoms such as fever, shortness of breath, cough, sore throat etc. If you do not have any symptoms after self quarantining for 5 total days, you must wear masks for the following 5 days when in contact with others or in public spaces. Your self quarantine will end 03/13/21. Follow up with: PRATIMA HERNANDEZ MD [Primary Care Provider] - 3-5 Days TAMIA DUNHAM MD [Staff Physician] - 14 Days Prescriptions: Spironolactone [Aldactone] 50 mg PO QDAY 30 Days #30 tablet dilTIAZem CD [Cardizem CD] 180 mg PO QDAY #30 capsule Dexamethasone 6 mg PO DAILY 10 Days #10 tab Potassium Chloride [K-Dur] 10 meq PO QDAY 30 Days #30 tablet Furosemide [Lasix TAB] 20 mg PO QDAY 30 Days #30 tablet Multivitamin Tab [Multiple Vitamin TAB (Theragran)] 1 each PO QDAY #30 tablet Pantoprazole [Protonix TAB] 40 mg PO QDAC 30 Days #30 tablet
[2021-03-11 18:47] VITALS: BP 113/70
== END 2021-03-11 19:05 | disposition home health service (06) | DRG 947 ==
LOC: ED 16:55 → 3A 21:58 → 4A 03-08 12:21 → 3A 03-08 14:30
PROVIDERS: ADMIT Hospitalist; ATTEND Student in an Organized Health Care Education/Training Program
PROC: 0W9G3ZX Drainage of Peritoneal Cavity, Percutaneous Approach, Diagnostic (ICD-10-PCS; principal; 2021-03-09)
DX: R18.8 Other ascites (principal); U07.1 COVID-19; K70.9 Alcoholic liver disease, unspecified; Z88.0 Allergy status to penicillin; F17.200 Nicotine dependence, unspecified, uncomplicated; I10 Essential (primary) hypertension; F10.20 Alcohol dependence, uncomplicated; Y90.9 Presence of alcohol in blood, level not specified; I25.10 Atherosclerotic heart disease of native coronary artery without angina pectoris; J44.9 Chronic obstructive pulmonary disease, unspecified; D53.9 Nutritional anemia, unspecified; D69.6 Thrombocytopenia, unspecified; E87.6 Hypokalemia
CPT/HCPCS: 36415; 49083; 76700; 80048; 80053; 82040; 82607; 82728; 82947; 83550; 83605; 83690; 84132; 84160; 85007; 85025; 85027; 85610; 86706; 86803; 88112; 88305; 89051; 94640; 94760; G0378; P9047; U0003